=== PATIENT | female | born 1940 | race Caucasian/White ===

== ENCOUNTER → 2018-02-16 | Outpatient (CLI) | payer MEDICARE ==
--- NOTE | 2018-02-18 09:05 | MM ---
Reason for exam: screening (asymptomatic). Last mammogram was performed 1 year and 2 months ago. History: Patient is postmenopausal and had first child at age 29. Physical Findings: A clinical breast exam by your physician is recommended on an annual basis and results should be correlated with mammographic findings. MG Screening Mammo w CAD Bilateral CC and MLO view(s) were taken. Prior study comparison: December 30, 2016, mammogram, performed at [facility]. November 30, 2015, mammogram, performed at [facility]. There are scattered fibroglandular densities. Stable bilateral secretory calcifications. No significant changes when compared with prior studies. ASSESSMENT: Negative, BI-RAD 1 RECOMMENDATION: Routine screening mammogram of both breasts in 1 year.
== END | disposition home or self-care (01) ==
LOC: RADMAMWWP 13:19
PROVIDERS: ATTEND Family Medicine
DX: Z12.31 Encounter for screening mammogram for malignant neoplasm of breast (principal)
CPT/HCPCS: 77067

== ENCOUNTER → 2018-04-15 | Outpatient (CLI) | payer MEDICARE ==
--- NOTE | 2018-04-15 15:02 | CT ---
EXAMINATION TYPE: CT abdomen pelvis w con DATE OF EXAM: 04/15/2018 COMPARISON: NONE HISTORY: RLQ bulging CT DLP: 501.1 mGycm CONTRAST: CT scan of the abdomen and pelvis is performed without Oral Contrast and with IV Contrast, patient in jected with 100 mL of Isovue 300. FINDINGS: LUNG BASES-: No visible nodule. No infiltrate. LIVER/GB: No calcified gallstones. No space occupying hepatic lesion. Biliary tree is of normal ca liber. PANCREAS: No inflammation. No distinct mass. SPLEEN: No splenic enlargement. No lesion seen. ADRENALS: No nodule. No thickening. KIDNEYS/BLADDER: No hydronephrosis. No nephrolithiasis. No distinct renal mass. Urinary bladder g rossly unremarkable. BOWEL: Normal appendix. Normal bowel caliber. No inflammation. GENITAL ORGANS: Right ovarian cystic lesion measuring 3 cm. Uterus and left ovary are unremarkable. LYMPH NODES: No greater than 1cm abdominal or pelvic lymph nodes are appreciated. AORTA: No significant abnormality. OSSEOUS STRUCTURES: No significant abnormality is seen. OTHER: Fat-containing right inguinal hernia. IMPRESSION: 1. Right ovarian cystic lesion. Consider ultrasound correlation.
== END | disposition home or self-care (01) ==
LOC: RADCTMAIN 13:27
PROVIDERS: ATTEND Surgery
DX: N83.201 Unspecified ovarian cyst, right side (principal)
CPT/HCPCS: 82565; 84520; 74177; 36415; Q9967

== ENCOUNTER → 2019-01-12 | Outpatient (CLI) | payer MEDICARE ==
[2019-01-12 18:33] LABS: Basophils % (A) 0 %; Eosinophils # (A) 0.1 k/uL (0-0.7); Eosinophils % (A) 1 %; HCT 47.2 % (34.0-46.0); HGB 15.4 gm/dL (11.4-16.0); Lymphocytes # (A) 1.4 k/uL (1.0-4.8); Lymphocytes % (A) 17 %; MCH 30.7 pg (25.0-35.0); MCHC 32.7 g/dL (31.0-37.0); MCV 93.9 fL (80.0-100.0); Mean Platelet Volume 7.9; Monocytes # (A) 0.7 k/uL (0-1.0); Monocytes % (A) 8 %; Neutrophils # (A) 6.1 k/uL (1.3-7.7); Neutrophils % (A) 71 %; Platelet Count 278 k/uL (150-450); RBC 5.02 m/uL (3.80-5.40); RDW 13.1 % (11.5-15.5); WBC 8.6 k/uL (3.8-10.6)
[2019-01-12 18:42] LABS: Appearance,Urine Clear (Clear); Bacteria,Urine Rare /hpf; Bilirubin,Urine Negative (Negative); Blood,Urine Negative (Negative); Color,Urine Light Yellow; Glucose,Urine (UA) Negative (Negative); Ketones,Urine Negative (Negative); Leukocyte Esterase,Urine Small (Negative); Nitrite,Urine Negative (Negative); Protein,Urine Negative (Negative); RBC,Urine 1 /hpf (0-5); Specific Gravity,Urine 1.004 (1.001-1.035); Urobilinogen,Urine <2.0 mg/dL (<2.0); WBC,Urine 2 /hpf (0-5)
[2019-01-12 18:44] LABS: Amylase 197 U/L (30-110); Blood Urea Nitrogen 18 mg/dL (7-17); Lipase 1552 U/L (23-300)
--- NOTE | 2019-01-12 19:45 | CT ---
EXAMINATION TYPE: CT abdomen pelvis w con DATE OF EXAM: 01/12/2019 COMPARISON: 04/15/2018 HISTORY: right sided abdominal pain, diarrhea CT DLP: 868 mGycm Automated exposure control for dose reduction was used. TECHNIQUE: Helical acquisition of images was performed from the lung bases through the pelvis. CONTRAST: Performed with Oral Contrast and with IV Contrast, patient injected with 60cc mL of Isovue 300. FINDINGS: Lung bases are clear. There is no pleural effusion. Stomach appears normal. Liver shows no focal defe ct. Spleen appears normal. There is no evidence of pancreatic mass. Gallbladder appears normal. Bile ducts are not dilated. There is no adrenal mass. Kidneys of normal size. There is no hydronephrosis. Kidneys show satisfacto ry contrast opacification. There is no retroperitoneal adenopathy. Bladder distends smoothly. Uterus is anteverted. There is no evidence of a pelvic mass. There is left hip surgery noted. There is no intestinal wall thickening. T here is no mesenteric edema. There is left psoas muscle atrophy. I see no bony destructive process. T here is no evidence of free air. There is no ascites. No sign of renal stone or obstruction. No dilat ed ducts..Appendix is not seen. There is no sign of appendicitis. There is a 3 cm thin-walled cystic fluid collection in the high pelvis on the right side measuring 3 cm. IMPRESSION: 3 cm cystic mass in the pelvis on the right side unchanged compared to old exam and could be ovarian cyst. I do not see a cause for right side pain.
== END | disposition home or self-care (01) ==
LOC: RADCTMAIN 16:18
PROVIDERS: ATTEND Family Medicine
DX: R19.00 Intra-abdominal and pelvic swelling, mass and lump, unspecified site (principal); R10.31 Right lower quadrant pain
CPT/HCPCS: 82150; 82565; 83690; 84520; 85025; 81001; 87086; 74177; 36415; Q9967

== ENCOUNTER 2019-03-09 15:20 | Emergency (ER) | payer OTHER, MEDICARE ==
--- NOTE | 2019-03-09 16:39 | XR ---
EXAMINATION TYPE: XR knee complete LT DATE OF EXAM: 03/09/2019 COMPARISON: NONE HISTORY: Knee pain TECHNIQUE: 3 views FINDINGS: There is slight narrowing of the medial joint space. I see no fracture nor dislocation. The re is no sign of joint effusion. There is mild spurring on the patella. IMPRESSION: Mild degenerative changes. No fracture.
--- NOTE | 2019-03-09 16:41 | XR ---
EXAMINATION TYPE: XR foot complete RT DATE OF EXAM: 03/09/2019 COMPARISON: NONE HISTORY: Foot pain TECHNIQUE: 3 views FINDINGS: There is multiple hammertoe deformity. There is calcaneal spurring. I see no fracture nor d islocation. Metatarsals are intact. There is mild hallux valgus. IMPRESSION: No acute abnormality of the right foot.
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
--- NOTE | 2019-03-09 17:47 | XR ---
EXAMINATION TYPE: XR chest 2V DATE OF EXAM: 03/09/2019 COMPARISON: June 21, 2016 HISTORY: Fall. Pain. TECHNIQUE: Frontal and lateral views of the chest are obtained. FINDINGS: Heart and mediastinum are normal. Lungs are clear of infiltrate. Bony thorax is intact. Pu lmonary vascularity is normal. IMPRESSION: No active cardiopulmonary disease. No change.
[2019-03-09] MEDS ORDERED: SODIUM CHLORIDE 0.9% 500 ML 500 ML IV STA (18:45)
[2019-03-09 19:04] LABS: Basophils % (A) 0 %; Eosinophils # (A) 0.1 k/uL (0-0.7); Eosinophils % (A) 1 %; HCT 46.1 % (34.0-46.0); HGB 14.7 gm/dL (11.4-16.0); Lymphocytes # (A) 1.2 k/uL (1.0-4.8); Lymphocytes % (A) 10 %; MCH 29.4 pg (25.0-35.0); MCHC 31.9 g/dL (31.0-37.0); MCV 92.2 fL (80.0-100.0); Mean Platelet Volume 7.1; Monocytes # (A) 0.6 k/uL (0-1.0); Monocytes % (A) 5 %; Neutrophils # (A) 10.6 k/uL (1.3-7.7); Neutrophils % (A) 83 %; Platelet Count 262 k/uL (150-450); RDW 13.4 % (11.5-15.5); WBC 12.7 k/uL (3.8-10.6)
[2019-03-09 19:19] LABS: ALT 17 U/L (9-52); AST 26 U/L (14-36); Albumin 3.9 g/dL (3.5-5.0); Alkaline Phosphatase 77 U/L (38-126); Anion Gap 8 mmol/L; Blood Urea Nitrogen 23 mg/dL (7-17); Calcium 9.3 mg/dL (8.4-10.2); Carbon Dioxide 26 mmol/L (22-30); Chloride 105 mmol/L (98-107); Glucose 98 mg/dL (74-99); Potassium 4.1 mmol/L (3.5-5.1); Sodium 139 mmol/L (137-145); Total Bilirubin 0.5 mg/dL (0.2-1.3); Total Protein 6.8 g/dL (6.3-8.2)
[2019-03-09 19:24] LABS: INR 0.9 (<1.2); Prothrombin Time 10.1 sec (9.0-12.0)
[2019-03-09 19:38] LABS: Partial Thromboplastin Time 17.8 sec (22.0-30.0)
[2019-03-09] MEDS ORDERED: ALPRAZolam 0.25 MG TAB PO STA (19:47)
[2019-03-09] MEDS ORDERED: cloNIDine HCL 0.1 MG TAB PO STA (19:48)
[2019-03-09 20:18] LABS: Appearance,Urine Clear (Clear); Bilirubin,Urine Negative (Negative); Blood,Urine Negative (Negative); Color,Urine Colorless; Glucose,Urine (UA) Negative (Negative); Ketones,Urine Trace (Negative); Leukocyte Esterase,Urine Negative (Negative); Nitrite,Urine Negative (Negative); Protein,Urine Negative (Negative); Specific Gravity,Urine 1.005 (1.001-1.035); Urobilinogen,Urine <2.0 mg/dL (<2.0)
[2019-03-09 20:37] VITALS: RESP 18
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
[2019-03-09 21:10] VITALS: BP 182/99; PULSE 103; TEMP 98.5
== END 2019-03-09 21:20 | disposition home or self-care (01) ==
LOC: EC 15:20
DX: S00.11XA Contusion of right eyelid and periocular area, initial encounter (principal); S80.02XA Contusion of left knee, initial encounter; S90.811A Abrasion, right foot, initial encounter; J44.9 Chronic obstructive pulmonary disease, unspecified; E78.5 Hyperlipidemia, unspecified; I10 Essential (primary) hypertension; F32.9 Major depressive disorder, single episode, unspecified; F41.9 Anxiety disorder, unspecified; Z79.51 Long term (current) use of inhaled steroids; Z79.899 Other long term (current) drug therapy; Z88.8 Allergy status to other drugs, medicaments and biological substances; V43.52XA Car driver injured in collision with other type car in traffic accident, initial encounter; Y92.410 Unspecified street and highway as the place of occurrence of the external cause
CPT/HCPCS: 36415; 86900; 86901; 80053; 84484; 85025; 85610; 85730; 86850; 81003; 73562; 73630; 71046; 72125; 70486; 70450; 71260; 74177; 99285; Q9967

== ENCOUNTER → 2019-03-19 | Outpatient (CLI) | payer MEDICARE ==
--- NOTE | 2019-03-23 09:42 | MM ---
Reason for exam: screening (asymptomatic). Last mammogram was performed 1 year and 1 month ago. History: Patient is postmenopausal and had first child at age 29. Physical Findings: A clinical breast exam by your physician is recommended on an annual basis and results should be correlated with mammographic findings. MG 3D Screening Mammo W/Cad Bilateral CC and MLO view(s) were taken. Prior study comparison: February 16, 2018, bilateral MG screening mammo w CAD. December 30, 2016, mammogram, performed at [facility]. The breast tissue is heterogeneously dense. This may lower the sensitivity of mammography. No significant changes when compared with prior studies. ASSESSMENT: Benign, BI-RAD 2 RECOMMENDATION: Routine screening mammogram of both breasts in 1 year.
== END | disposition home or self-care (01) ==
LOC: RADMAMWWP 11:07
PROVIDERS: ATTEND Family Medicine
DX: Z12.31 Encounter for screening mammogram for malignant neoplasm of breast (principal)
CPT/HCPCS: 77063; 77067

== ENCOUNTER → 2020-05-26 | Outpatient (CLI) | payer MEDICARE ==
--- NOTE | 2020-05-29 14:16 | MM ---
Reason for exam: screening (asymptomatic). Last mammogram was performed 1 year and 2 months ago. History: Patient is postmenopausal and had first child at age 29. Family history of breast cancer in sister. Physical Findings: A clinical breast exam by your physician is recommended on an annual basis and results should be correlated with mammographic findings. MG 3D Screening Mammo W/Cad Bilateral CC and MLO view(s) were taken. Prior study comparison: March 19, 2019, bilateral MG 3d screening mammo w/cad. February 16, 2018, bilateral MG screening mammo w CAD. The breast tissue is heterogeneously dense. This may lower the sensitivity of mammography. Finding: There are typically benign dystrophic, round, linear calcifications in both breasts. There is no discrete abnormality. ASSESSMENT: Benign, BI-RAD 2 RECOMMENDATION: Routine screening mammogram of both breasts in 1 year.
== END | disposition home or self-care (01) ==
LOC: RADMAMWWP 12:57
PROVIDERS: ATTEND Family Medicine
DX: Z12.31 Encounter for screening mammogram for malignant neoplasm of breast (principal)
CPT/HCPCS: 77063; 77067

== ENCOUNTER → 2021-07-03 | Outpatient (CLI) | payer MEDICARE ==
--- NOTE | 2021-07-05 13:58 | MM ---
Reason for exam: screening (asymptomatic). Last mammogram was performed 1 year and 1 month ago. History: Patient is postmenopausal and had first child at age 29. Family history of breast cancer in sister. Physical Findings: A clinical breast exam by your physician is recommended on an annual basis and results should be correlated with mammographic findings. MG 3D Screening Mammo W/Cad Bilateral CC and MLO view(s) were taken. Prior study comparison: May 26, 2020, bilateral MG 3d screening mammo w/cad. March 19, 2019, bilateral MG 3d screening mammo w/cad. There are scattered fibroglandular densities. Finding: There are typically benign linear, diffuse/scattered calcifications in both breasts. No significant changes in finding since May 26, 2020 and March 19, 2019. ASSESSMENT: Benign, BI-RAD 2 RECOMMENDATION: Routine screening mammogram of both breasts in 1 year.
== END | disposition home or self-care (01) ==
LOC: RADMAMWWP 13:15
PROVIDERS: ATTEND Family Medicine
DX: Z12.31 Encounter for screening mammogram for malignant neoplasm of breast (principal); Z80.3 Family history of malignant neoplasm of breast; Z78.0 Asymptomatic menopausal state
CPT/HCPCS: 77063; 77067

== ENCOUNTER → 2022-07-11 | Outpatient (CLI) | payer MEDICARE ==
--- NOTE | 2022-07-12 07:45 | MM ---
Reason for Exam: Screening (asymptomatic). Last screening mammogram was performed 12 month(s) ago. Patient History: Menarche at age 10. First Full-Term at age 29. Late child-bearing (after 30). Postmenopausal. Sister had breast cancer, age 60. Risk Values: [place] 5 year model risk: 3.0%. NCI Lifetime model risk: 3.7%. Prior Study Comparison: 03/19/2019 Bilateral Screening Mammogram, [facility]. 05/26/2020 Bilateral Screening Mammogram, [facility]. 07/03/2021 Bilateral Screening Mammogram, [facility]. Tissue Density: The breast tissue is heterogeneously dense. This may lower the sensitivity of mammography. Findings: Analyzed By CAD. There is no suspicious group of microcalcifications. U asymmetric density upper right MLO view 7.5 cm from the nipple. Additional views are recommended. Overall Assessment: Incomplete: need additional imaging evaluation, BI-RAD 0 Management: Diagnostic Mammogram of the right breast. A clinical breast exam by your physician is recommended on an annual basis and results should be correlated with mammographic findings. Electronically signed and approved by: Tay Torres M.D. Radiologis
== END | disposition home or self-care (01) ==
LOC: RADMAMWWP 13:24
PROVIDERS: ATTEND Family Medicine
DX: Z12.31 Encounter for screening mammogram for malignant neoplasm of breast (principal)
CPT/HCPCS: 77063; 77067

== ENCOUNTER → 2022-07-16 | Outpatient (CLI) | payer MEDICARE ==
--- NOTE | 2022-07-16 14:41 | MM ---
Reason for Exam: Additional evaluation requested from abnormal screening. Last screening mammogram was performed less than 1 month ago. Patient History: Menarche at age 10. First Full-Term at age 29. Late child-bearing (after 30). Postmenopausal. Sister had breast cancer, age 60. Risk Values: Park 5 year model risk: 3.0%. NCI Lifetime model risk: 3.7%. Prior Study Comparison: 11/30/2015 Screening Mammogram, [facility]. 12/30/2016 Screening Mammogram, [facility]. 02/16/2018 Bilateral Screening Mammogram, [facility] 03/19/2019 Bilateral Screening Mammogram, [facility]. 05/26/2020 Bilateral Screening Mammogram, [facility] 07/03/2021 Bilateral Screening Mammogram, [facility]. 07/11/2022 Bilateral MG 3D screening mammo w/cad, [facility]. Tissue Density: Right: The breast tissue is heterogeneously dense. This may lower the sensitivity of mammography. Findings: Analyzed By CAD. No evidence for mass or distortion. Overall Assessment: Negative, BI-RAD 1 Management: Screening Mammogram of both breasts in 1 year. A clinical breast exam by your physician is recommended on an annual basis and results should be correlated with mammographic findings. This exam should not preclude additional follow-up of suspicious palpable abnormalities. Results were given to the patient verbally at the time of exam. Electronically signed and approved by: Tay Torres M.D. Radiologis
== END | disposition home or self-care (01) ==
LOC: RADMAMWWP 13:29
PROVIDERS: ATTEND Family Medicine
DX: R92.8 Other abnormal and inconclusive findings on diagnostic imaging of breast (principal); Z78.0 Asymptomatic menopausal state; Z80.3 Family history of malignant neoplasm of breast
CPT/HCPCS: 77065; G0279; 77061

== ENCOUNTER 2023-01-03 13:54 | Inpatient (IN) | payer MEDICARE ==
[2023-01-03] MEDS ORDERED: SODIUM CHLORIDE 0.9% 500 ML 500 ML IV STA (13:59)
--- NOTE | 2023-01-03 14:03 | ED ---
General Adult HPI - General Stated complaint: poss stroke Time Seen by Provider: 01/03/23 13:58 Source: patient, EMS, RN notes reviewed, old records reviewed - History of Present Illness Initial comments: 82-year-old female history of hypertension presenting for evaluation of work finding difficulty and some slurred speech. The symptoms are intermittent. She was normal at 10 AM which she took a nap. She woke up from her nap at approximately 11 AM and was noted to have some word finding difficulty. She is able to speak in full sentences but then occasionally stares off and appears to have a hard time finding the word that she is looking for. This is not constant but has been witnessed but by paramedics and a single episode by myself. She denies focal limb weakness. She denies headache. Denies chest pain. No prior history of CVA. No anticoagulation. - Related Data Home Medications Medication Instructions Recorded Confirmed lisinopriL [Prinivil] 20 mg PO DAILY 08/22/16 01/03/23 Albuterol Inhaler [Ventolin Hfa 2 puff INHALATION RT-QID PRN 01/03/23 01/03/23 Inhaler] Beclomethasone Dip 80 Mcg/Puff 2 puff INHALATION RT-BID 01/03/23 01/03/23 [Qvar 80 mcg] Calcium Carbonate [Calcium] 600 mg PO DAILY 01/03/23 01/03/23 Lovastatin [Mevacor] 80 mg PO HS 01/03/23 01/03/23 Allergies Allergy/AdvReac Type Severity Reaction Status Date / Time citalopram hydrobromide AdvReac "It Verified 01/03/23 14:39 [From Celexa] drugged me too much" Review of Systems ROS Statement: Those systems with pertinent positive or pertinent negative responses have been documented in the HPI. ROS Other: All systems not noted in ROS Statement are negative. Past Medical History Past Medical History: Asthma, COPD, Hyperlipidemia, Hypertension Additional Past Medical History / Comment(s): pain-shingles abdomen rt side and back, inner ear issue with occasional dizziness History of Any Multi-Drug Resistant Organisms: None Reported Past Surgical History: Orthopedic Surgery Additional Past Surgical History / Comment(s): scar tissue removal from neck. d&c , left hip surgery Past Anesthesia/Blood Transfusion Reactions: No Reported Reaction Past Psychological History: Anxiety, Depression Past Alcohol Use History: None Reported Past Drug Use History: None Reported - Past Family History Mother Family Medical History: CVA/TIA Father Family Medical History: Myocardial Infarction (IN) General Exam General appearance: alert, in no apparent distress Head exam: Present: atraumatic, normocephalic Eye exam: Present: normal appearance, PERRL ENT exam: Present: normal exam Neck exam: Present: normal inspection. Absent: tenderness, meningismus Respiratory exam: Present: normal lung sounds bilaterally. Absent: respiratory distress, wheezes Cardiovascular Exam: Present: regular rate, normal rhythm GI/Abdominal exam: Present: soft. Absent: distended, tenderness, guarding Extremities exam: Present: normal inspection, normal capillary refill. Absent: pedal edema Neurological exam: Present: alert, oriented X3, CN II-XII intact, motor sensory deficit (NIH of 1 for expressive aphasia) Psychiatric exam: Present: normal affect, normal mood Skin exam: Present: warm, dry, intact. Absent: cyanosis, diaphoretic Course Vital Signs 01/03/23 01/03/23 01/03/23 13:55 14:00 14:15 Temperature 97.9 F 97.8 F 97.8 F Pulse Rate 120 H 120 H 116 H Pulse Rate [ 120 H Principal Archaeologist ] Respiratory 20 18 20 Rate Blood Pressure 193/103 190/96 187/100 O2 Sat by Pulse 96 96 97 Oximetry 01/03/23 14:45 Temperature 98.0 F Pulse Rate 116 H Pulse Rate [ Principal Archaeologist ] Respiratory 20 Rate Blood Pressure 206/137 O2 Sat by Pulse 96 Oximetry EKG Findings - EKG Comments: EKG Findings:: EKG: Sinus rhythm rate of 93, WA interval 203, QRS duration 73, QTC 377, no ST segment elevation. Medical Decision Making - Medical Decision Making Was pt. sent in by a medical professional or institution (, PA, SPACE BUYER, urgent care, hospital, or custodial...) When possible be specific @ -No Did you speak to anyone other than the patient for history (EMS, parent, family, police, friend...)? What history was obtained from this source @ -History obtained from paramedics and patient's as well as the patient Did you review nursing and triage notes (agree or disagree)? Why? @ -I reviewed and agree with nursing and triage notes Were old charts reviewed (outside hosp., previous admission, EMS record, old EKG, old radiological studies, urgent care reports/EKG's, custodial records)? Report findings @ -No old charts were reviewed Differential Diagnosis (chest pain, altered mental status, abdominal pain women, abdominal pain men, vaginal bleeding, weakness, fever, dyspnea, syncope, headache, dizziness, GI bleed, back pain, seizure, CVA, palpatations, mental health, musculoskeletal)? @ -Differential CVA Ischemic stroke, hemorrhagic stroke, brain tumor, atypical migraine, Wernicke's encephalopathy, seizure, multiple sclerosis, meningitis, encephalitis, hypoglycemia, Guillain-Fields, electrolytes disturbance, myasthenia gravis.... This is not meant to be an all-inclusive list EKG interpreted by me (3pts min.). @ -As above X-rays interpreted by me (1pt min.). @ -Chest x-ray reviewed, agree with the radiologist assessment, no acute findings CT interpreted by me (1pt min.). @ -CT without contrast reviewed, negative for intracranial hemorrhage, no acute findings. Agree with the radiologist assessment U/S interpreted by me (1pt. min.). @ -None done What testing was considered but not performed or refused? (CT, X-rays, U/S, labs)? Why? @ -None What meds were considered but not given or refused? Why? @ -Considered TPA at the time of onset however given the improving symptoms and duration of 4 hours felt that the risks outweigh the benefits. Did you discuss the management of the patient with other professionals (professionals i.e. , PA, SPACE BUYER, lab, RT, psych nurse, social science instructor, track coach, teacher, trust officer, outpatient case manager)? Give summary @ -Discussed this patient's care with the stroke intervention was Dr. Maria at the time of presentation and with the admitting physician Dr. Brown Was smoking cessation discussed for >3mins.? @ -No Was critical care preformed (if so, how long)? @ -35 min Were there social determinants of health that impacted care today? How? (Homelessness, low income, unemployed, alcoholism, drug addiction, tra nsportation, low edu. Level, literacy, decrease access to med. care, longterm, rehab)? @ -No Was there de-escalation of care discussed even if they declined (Discuss DNR or withdrawal of care, Hospice)? DNR status @ -No What co-morbidities impacted this encounter? (DM, HTN, Smoking, COPD, CAD, Cancer, CVA, ARF, Chemo, Hep., AIDS, mental health diagnosis, sleep apnea, morbid obesity)? @ -None Was patient admitted / discharged? Hospital course, mention meds given and route, prescriptions, significant lab abnormalities, going to OR and other pertinent info. @ -82-year-old female who percent with expressive aphasia and word finding difficulty. Initial NIH was 1 or 2. There was no limb weakness. No ataxia. Patient's symptoms improved in the emergency department. CT and CT angiography were performed which were negative for acute findings. The patient was given aspirin, she was admitted with MRI pending. Undiagnosed new problem with uncertain prognosis? @ -Episode of expressive aphasia improving Drug Therapy requiring intensive monitoring for toxicity (Heparin, Nitro, Insulin, Cardizem)? @ -No Were any procedures done? @ -No Diagnosis/symptom? @ -CVA Acute, or Chronic, or Acute on Chronic? @ -Acute Uncomplicated (without systemic symptoms) or Complicated (systemic symptoms)? @ -complicated Side effects of treatment? @ -No Exacerbation, Progression, or Severe Exacerbation? @ -No Poses a threat to life or bodily function? How? (Chest pain, USA, [place], pneumonia, PE, COPD, DKA, ARF, appy, cholecystitis, CVA, Diverticulitis, Homicidal, Suicidal, threat to staff... and all critical care pts) @ -[CVA, risk of progressive neurologic deficit. - Lab Data Result diagrams: 01/03/23 14:05 01/03/23 14:05 Lab Results 01/03/23 01/03/23 01/03/23 Range/Units 14:05 14:05 14:05 WBC 8.5 (3.8-10.6) k/uL RBC 4.90 (3.80-5.40) m/uL Hgb 15.2 (11.4-16.0) gm/dL Hct 46.1 H (34.0-46.0) % MCV 94.1 (80.0-100.0) fL MCH 30.9 (25.0-35.0) pg MCHC 32.9 (31.0-37.0) g/dL RDW 12.7 (11.5-15.5) % Plt Count 267 (150-450) k/uL MPV 7.5 Neutrophils % 74 % Lymphocytes % 12 % Monocytes % 10 % Eosinophils % 1 % Basophils % 0 % Neutrophils # 6.3 (1.3-7.7) k/uL Lymphocytes # 1.1 (1.0-4.8) k/uL Monocytes # 0.8 (0-1.0) k/uL Eosinophils # 0.0 (0-0.7) k/uL Basophils # 0.0 (0-0.2) k/uL PT 10.3 (9.0-12.0) sec INR 1.0 (<1.2) APTT 22.1 (22.0-30.0) sec Sodium 137 (137-145) mmol/L Potassium 3.7 (3.5-5.1) mmol/L Chloride 97 L (98-107) mmol/L Carbon Dioxide 32 H (22-30) mmol/L Anion Gap 8 mmol/L BUN 20 H (7-17) mg/dL Creatinine 0.67 (0.52-1.04) mg/dL Est GFR (CKD-EPI)AfAm >90 (>60 ml/min/1.73 sqM) Est GFR (CKD-EPI)NonAf 81 (>60 ml/min/1.73 sqM) Glucose 117 H (74-99) mg/dL POC Glucose (mg/dL) (70-110) mg/dL POC Glu Change Control Manager ID Calcium 9.0 (8.4-10.2) mg/dL Total Bilirubin 0.5 (0.2-1.3) mg/dL AST 33 (14-36) U/L ALT 21 (4-34) U/L Alkaline Phosphatase 94 (38-126) U/L Creatine Kinase (30-135) U/L Troponin I (0.000-0.034) ng/mL Total Protein 7.4 (6.3-8.2) g/dL Albumin 4.1 (3.5-5.0) g/dL 01/03/23 01/03/23 01/03/23 Range/Units 14:05 14:05 14:05 WBC (3.8-10.6) k/uL RBC (3.80-5.40) m/uL Hgb (11.4-16.0) gm/dL Hct (34.0-46.0) % MCV (80.0-100.0) fL MCH (25.0-35.0) pg MCHC (31.0-37.0) g/dL RDW (11.5-15.5) % Plt Count (150-450) k/uL MPV Neutrophils % % Lymphocytes % % Monocytes % % Eosinophils % % Basophils % % Neutrophils # (1.3-7.7) k/uL Lymphocytes # (1.0-4.8) k/uL Monocytes # (0-1.0) k/uL Eosinophils # (0-0.7) k/uL Basophils # (0-0.2) k/uL PT (9.0-12.0) sec INR (<1.2) APTT (22.0-30.0) sec Sodium (137-145) mmol/L Potassium (3.5-5.1) mmol/L Chloride (98-107) mmol/L Carbon Dioxide (22-30) mmol/L Anion Gap mmol/L BUN (7-17) mg/dL Creatinine (0.52-1.04) mg/dL Est GFR (CKD-EPI)AfAm (>60 ml/min/1.73 sqM) Est GFR (CKD-EPI)NonAf (>60 ml/min/1.73 sqM) Glucose (74-99) mg/dL POC Glucose (mg/dL) 126 H (70-110) mg/dL POC Glu Change Control Manager ID [place] Joshua Calcium (8.4-10.2) mg/dL Total Bilirubin (0.2-1.3) mg/dL AST (14-36) U/L ALT (4-34) U/L Alkaline Phosphatase (38-126) U/L Creatine Kinase 80 (30-135) U/L Troponin I <0.012 (0.000-0.034) ng/mL Total Protein (6.3-8.2) g/dL Albumin (3.5-5.0) g/dL Critical Care Time Critical Care Time: Yes Total Critical Care Time: 35 Disposition Clinical Impression: Cerebrovascular accident (CVA) Disposition: ADMITTED IP TO THIS HOSP Condition: Stable Is patient prescribed a controlled substance at d/c from ED?: No Referrals: Jean Claude Chaidez DO [Primary Care Provider] - 1-2 days Time of Disposition: 16:27
[2023-01-03 14:08] LABS: Glucose,Whole Blood 126 mg/dL (70-110)
[2023-01-03] MEDS ORDERED: methylPREDNISolone SOD SUCCI 125 MG/2 ML VIAL IV STA (14:14)
[2023-01-03] MEDS ORDERED: FAMOTIDINE 20 MG/2 ML VIAL IV STA (14:14)
[2023-01-03] MEDS ORDERED: ONDANSETRON 4 MG/2 ML VIAL IVP STA (14:17)
[2023-01-03 14:26] LABS: Basophils % (A) 0 %; Eosinophils % (A) 1 %; HCT 46.1 % (34.0-46.0); HGB 15.2 gm/dL (11.4-16.0); Lymphocytes # (A) 1.1 k/uL (1.0-4.8); Lymphocytes % (A) 12 %; MCH 30.9 pg (25.0-35.0); MCHC 32.9 g/dL (31.0-37.0); MCV 94.1 fL (80.0-100.0); Mean Platelet Volume 7.5; Monocytes # (A) 0.8 k/uL (0-1.0); Monocytes % (A) 10 %; Neutrophils # (A) 6.3 k/uL (1.3-7.7); Neutrophils % (A) 74 %; Platelet Count 267 k/uL (150-450); RDW 12.7 % (11.5-15.5); WBC 8.5 k/uL (3.8-10.6)
--- NOTE | 2023-01-03 14:40 | CT ---
EXAMINATION TYPE: CT brain wo con CT DLP: 1096.5 mGycm, Automated exposure control for dose reduction was used. DATE OF EXAM: 01/03/2023 2:34 PM COMPARISON: CT brain C-spine 03/09/2019. CLINICAL INDICATION:Female, 82 years old with history of Neuro deficit, acute, stroke suspected, CODE STROKE TECHNIQUE: Brain: Multiple axial CT images of the brain were obtained without IV contrast. Coronal and sagittal images are reviewed. FINDINGS: Brain: Extra-axial spaces: No abnormal extra-axial fluid collections. Ventricular system: Within normal limits Cerebral parenchyma: Cerebral atrophy. No acute intraparenchymal hemorrhage or mass effect. The valle -white junction is well differentiated. Scattered hypoattenuating areas are seen within the white mat ter. Cerebellum: Unremarkable. Mass effect: No evidence of midline shift. Intracranial vasculature: Atherosclerotic calcifications of the intracranial vessels. Soft tissues: Normal. Calvarium/osseous structures: No depressed skull fracture. Paranasal sinuses and mastoid air cells: Clear Visualized orbits: Bilateral aphakia IMPRESSION: 1. No acute intracranial process. 2. Nonspecific white matter changes, likely secondary to chronic small vessel ischemic disease.
--- NOTE | 2023-01-03 14:48 | CT ---
EXAMINATION TYPE: CT angio head neck CT DLP: 358 mGycm, Automated exposure control for dose reduction was used. DATE OF EXAM: 01/03/2023 2:38 PM COMPARISON: CT head 01/03/2023. CLINICAL INDICATION:Female, 82 years old with history of Neuro deficit, acute, stroke suspected; PHH, CODE STROKE TECHNIQUE: Axially acquired helical CT angiogram of the head and neck was obtained with contrast util izing 65 cc of Isovue-370 administered intravenously. Axial images are supplemented with 3D reconstru ctions which were post-processed at an independent workstation. NASCET criteria used. FINDINGS: Motion degraded examination. CTA HEAD: No evidence of acute intracranial hemorrhage, mass effect, or midline shift. The ventricles, sulci, a nd cisterns are unremarkable. The visualized portions of the internal carotid arteries, middle cerebral arteries, anterior cerebral arteries, and posterior cerebral arteries are patent. The basilar and vertebral arteries are patent. CTA NECK: Right Carotid System: The common carotid artery and external carotid artery are patent. Minimal atherosclerotic calcificati on at the carotid bulb. The carotid bifurcation demonstrates no evidence of hemodynamically significa nt stenosis. The remaining portions of the internal carotid artery demonstrate normal size without si gnificant narrowing. Left Carotid System: The common carotid artery and external carotid artery are patent. The carotid bifurcation demonstrate s no evidence of hemodynamically significant stenosis. The remaining portions of the internal carotid artery demonstrate normal size without significant narrowing. Vertebral arteries are patent without evidence hemodynamically significant stenosis. There is a three-vessel aortic arch. The origins of the great vessels are patent. No evidence of hemo dynamically significant stenosis. IMPRESSION: Motion degraded examination. 1. No evidence of dissection of the cervical internal carotid arteries or vertebral arteries or any e vidence of significant stenosis at the carotid bifurcations. 2. No evidence of high-grade stenosis or intracranial aneurysm.
[2023-01-03] MEDS ORDERED: ASPIRIN 325 MG TAB PO STA (14:53)
[2023-01-03] MEDS ORDERED: SODIUM CHLORIDE 0.9% 500 ML 500 ML IV ONE (14:53)
[2023-01-03 14:57] LABS: AST 33 U/L (14-36); African American GFR (CKD) >90 (>60 ml/min/1.73 sqM); Albumin 4.1 g/dL (3.5-5.0); Blood Urea Nitrogen 20 mg/dL (7-17); Carbon Dioxide 32 mmol/L (22-30); Chloride 97 mmol/L (98-107); Glucose 117 mg/dL (74-99); Non-African American GFR(CKD) 81 (>60 ml/min/1.73 sqM); Total Bilirubin 0.5 mg/dL (0.2-1.3); Total Protein 7.4 g/dL (6.3-8.2)
[2023-01-03 14:58] LABS: ALT 21 U/L (4-34); Alkaline Phosphatase 94 U/L (38-126); Anion Gap 8 mmol/L; Potassium 3.7 mmol/L (3.5-5.1); Sodium 137 mmol/L (137-145)
[2023-01-03 15:01] LABS: Partial Thromboplastin Time 22.1 sec (22.0-30.0); Prothrombin Time 10.3 sec (9.0-12.0)
--- NOTE | 2023-01-03 15:26 | XR ---
EXAMINATION TYPE: XR chest 1V portable DATE OF EXAM: 01/03/2023 3:20 PM COMPARISON: Chest radiographs from 03/09/2019 TECHNIQUE: XR chest 1V portable Portable AP radiograph of the chest. CLINICAL INDICATION:Female, 82 years old with history of altered mental status; FINDINGS: Lungs/Pleura: There is no evidence of pleural effusion, focal consolidation, or pneumothorax. Pulmonary vascularity: Unremarkable. Heart/mediastinum: Cardiomediastinal silhouette is unremarkable. Atherosclerotic calcifications are seen in the aorta. Musculoskeletal: No acute osseous pathology. IMPRESSION: No acute cardiopulmonary disease/process. No significant change from prior examination.
[2023-01-03] MEDS: SODIUM CHLORIDE 0.9% 1,000 ML IV SCH (18:03)
[2023-01-03] MEDS ORDERED: ALBUTEROL HFA INHALER INHALATION PRN (21:24)
[2023-01-03] MEDS: HEPARIN SODIUM,PORCINE/PF 5,000 UNIT/0.5 ML SYRINGE SQ SCH (23:35)
[2023-01-04] MEDS: SODIUM CHLORIDE 0.9% 1,000 ML IV SCH ×3 (04:07→23:34)
[2023-01-04] MEDS: FLUTICASONE 110 MCG INHALER INHALATION SCH ×2 (07:50→18:14)
[2023-01-04] MEDS: CALCIUM CARBONATE 500 MG CHEWABLE PO SCH (08:59)
[2023-01-04] MEDS: HEPARIN SODIUM,PORCINE/PF 5,000 UNIT/0.5 ML SYRINGE SQ SCH ×3 (08:59→23:34)
[2023-01-04] MEDS ORDERED: lisinopriL 20 MG TAB PO SCH (09:00)
[2023-01-04] MEDS ORDERED: ASPIRIN 325 MG TAB PO SCH (09:00)
[2023-01-04] MEDS ORDERED: ATORVASTATIN 40 MG TAB PO SCH (09:00)
[2023-01-04 09:52] LABS: Chol/HDL Ratio 2.52 Ratio; LDL Cholesterol,Calculated 88.6 mg/dL (0.0-131.0); VLDL Calculation 18.76 mg/dL (5.00-40.00)
--- NOTE | 2023-01-04 11:09 | P.CNNES ---
History of Present Illness Consult date: 01/04/23 Requesting physician: Benedicto Lundberg Reason for Consult: CVA History of Present Illness: This is a 82-year-old woman with medical history of hypertension, hyperlipidemia who presented to the emergency department because of the word finding difficulty. She stated that around the 10:00 yesterday a.m. she took a nap then when she woke up after half-hour which was 10:30 AM she was having difficulty getting her words out but knew what she wanted to say. She stated the episode lasted for couple hours. She denies of any numbness, weakness, visual disturbance or difficulty swallowing. She denies of any headache. Denies of any history of stroke or TIA. Denies history of atrial fibrillation. She denies being on antiplatelets or anticoagulation. Currently she feels she is at baseline. Some of the work-up during this hospital visit consisted of: On presentation her blood pressure was 193/103, heart rate 120. It was high 206/137 Lipid panel: TG 93, cholestrol 178, LDL [address] of the head is reported as no acute intracranial processes. Nonspecific white matter changes likely secondary due to chronic small vessel ischemic disease. I personally reviewed the CT of the head and I agree with report. CT angiography of the head and neck was reported as no evidence of dissection of the cervical internal carotid arteries or vertebral artery or any evidence of significant stenosis at the carotid bifurcation. No evidence of high-grade stenosis or intracranial aneurysm. ED team at [facility] stroke scale was a 1 or 2 with expressive aphasia/word finding difficulty. Per the ED have no IV TPA because of improving symptoms and duration of 4 hours and felt the risk outweighed the benefit. The ED team spoke with the stroke attending Dr. Maria. Review of Systems Review of system: The 12 point system was reviewed and apparent positive and negative per HPI. Past Medical History Past Medical History: Asthma, COPD, Hyperlipidemia, Hypertension Additional Past Medical History / Comment(s): pain-shingles abdomen rt side and back, inner ear issue with occasional dizziness History of Any Multi-Drug Resistant Organisms: None Reported Past Surgical History: Orthopedic Surgery Additional Past Surgical History / Comment(s): scar tissue removal from neck. d&c , left hip surgery Past Anesthesia/Blood Transfusion Reactions: No Reported Reaction Past Psychological History: Anxiety, Depression Smoking Status: Never smoker Past Alcohol Use History: None Reported Past Drug Use History: None Reported - Past Family History Mother Family Medical History: CVA/TIA Father Family Medical History: Myocardial Infarction (ID) Medications and Allergies Home Medications Medication Instructions Recorded Confirmed Type lisinopriL [Prinivil] 20 mg PO DAILY 08/22/16 01/03/23 History Albuterol Inhaler [Ventolin Hfa 2 puff INHALATION RT-QID PRN 01/03/23 01/03/23 History Inhaler] Beclomethasone Dip 80 Mcg/Puff 2 puff INHALATION RT-BID 01/03/23 01/03/23 Hi story [Qvar 80 mcg] Calcium Carbonate [Calcium] 600 mg PO DAILY 01/03/23 01/03/23 History Lovastatin [Mevacor] 80 mg PO HS 01/03/23 01/03/23 History Allergies Allergy/AdvReac Type Severity Reaction Status Date / Time citalopram hydrobromide AdvReac "It Verified 01/03/23 14:39 [From Celexa] drugged me too much" Physical Examination - Vital Signs Vital Signs: Vital Signs Temp Pulse Pulse Resp BP BP Pulse Ox 01/04/23 08:00 87 16 186/94 95 01/04/23 07:50 96 01/04/23 04:00 98 F 89 16 160/84 96 01/03/23 23:37 98 F 98 15 166/87 93 L 01/03/23 20:00 98.3 F 91 16 146/79 93 L 01/03/23 18:36 97.7 F 105 H 20 186/83 93 L 01/03/23 18:00 98.0 F 92 20 175/80 97 01/03/23 17:00 97.4 F L 92 18 176/68 97 01/03/23 16:00 97.6 F 90 18 172/68 97 01/03/23 15:00 97.6 F 98 18 177/82 97 01/03/23 14:45 98.0 F 116 H 20 206/137 96 01/03/23 14:15 97.8 F 116 H 20 187/100 97 01/03/23 14:00 97.8 F 120 H 18 190/96 96 01/03/23 13:55 97.9 F 120 H 120 H 20 193/103 96 Intake and Output 03/01/04/23 01/04/23 22:59 06:59 14:59 Intake Total 1140 118 Output Total 500 Balance 640 118 Intake: Intake, IV Titration 600 Amount Sodium Chloride 0.9% 1, 600 000 ml @ 100 mls/hr IV . Q10H [facility] Rx#:[id number] Oral 540 118 Output: Urine 500 Other: Voiding Method External Catheter External Catheter Weight 61.779 kg GENERAL: The patient is lying in bed and is not in acute distress. CHEST: The heart rate is regular rate rhythm. No murmurs to auscultation. . LUNG: Clear to auscultation bilaterally no wheezing noted throughout. Not labored breathing. ABDOMEN/GI: Bowel sounds present in all 4 quadrants. No tenderness to palpation throughout. NEUROLOGICAL: Higher mental function: The patient is awake, alert, oriented to self, place and time. Patient is following commands. No aphasia and no neglect. Cranial nerves: The pupils are round, equal and reactive to light and accommodation. Visual marrufo are full to confrontation throughout. Extraocular movement is intact no nystagmus is noted. Facial sensation is normal to touch throughout. The facial strength is normal throughout. Hearing is normal bilaterally to hand rub. Tongue is midline and moved [id number] without any difficulty. No dysarthria is noted. Shoulder shrug is normal bilaterally. Motor: The strength is 5 over 5 throughout. Normal tone and bulk. Cerebellum: Normal finger to nose bilaterally. Sensation: Sensation is normal to touch throughout. Reflexes (right/left): 2+ throughout. Plantars are mute bilaterally. Results - Laboratory Findings CBC and BMP: 01/03/23 14:05 01/03/23 14:05 Abnormal Lab Findings: Abnormal Labs 01/03/23 01/03/23 01/03/23 14:05 14:05 14:05 Hct 46.1 H Chloride 97 L Carbon Dioxide 32 H BUN 20 H Glucose 117 H POC Glucose (mg/dL) 126 H HDL Cholesterol 01/03/23 14:15 Hct Chloride Carbon Dioxide BUN Glucose POC Glucose (mg/dL) HDL Cholesterol 70.60 H Assessment and Plan Assessment: Transient ischemic attack (expressive aphasia) Accelerated hypertension (was as high as 206/137) History of hypertension Hyperlipidemia Plan: In the ED the patient was given aspirin 325 once then was started on aspirin 325 daily (was not on antiplatelets prior). I decreased the aspirin to 81 mg daily and I added Plavix 75 mg daily. She is on Lipitor 20 mg daily at bedtime for second seizure prophylaxis MRI of the brain, 2-D echo is ordered by the ED team is pending Continue neuro checks Cardiac monitoring PT OT and FIELD CROP FARMER are consulted We'll defer the rest of the medical management to primary team For DVT prophylaxis the patient is on subcu heparin 5000 units every hours Upon discharge recommend the patient to follow-up with a neurologist in outpatient within 1-2 weeks. Thank you for the consultation Time with Patient: Greater than 30
--- NOTE | 2023-01-04 12:06 | P.HPIM ---
History of Present Illness H&P Date: 01/03/23 Chief Complaint: Could not speak words This is a pleasant 82-year-old patient who follows with Dr. Chaidez. Chronic stable medical conditions include asthma, hypertension, hyperlipidemia, osteoarthritis. I saw the patient to ER. Patient is accompanied by her . Around 10 AM she noted that she was unable to complete sentences. Finding words. She is brought into the ER. She was not felt to be candidate for TPA. There is some improvement but not back to baseline. No facial asymmetry no headache. No change in vision. No focal weakness. No trouble walking. Neurology was consulted. Review of systems: GEN.: Tired EYES: None HEENT: None NECK: None RESPIRATORY: None CARDIOVASCULAR: None GASTROINTESTINAL: None GENITOURINARY: None MUSCULOSKELETAL: Joint pains LYMPHATICS: None HEMATOLOGICAL: None PSYCHIATRY: None NEUROLOGICAL: As above Past medical history to include: Asthma, hypertension, hyperlipidemia, post herpetic pain. In the ear issues causing balance problem. Anxiety. Physical examination: VITAL SIGNS: 97.6, 90, 18, 172/68, 97% on room air GENERAL: BMI 25.7, declining but awake slightly anxious. EYES: Pupils equal. Conjunctiva normal. HEENT: External appearance of nose and ears normal, oral cavity grossly normal. NECK: JVD not raised; masses not palpable. HEART: First and second heart sounds are normal; no edema. LUNGS: Respiratory rate normal; clear to auscultation. ABDOMEN: Soft, nontender, liver spleen not palpable, no masses palpable. PSYCH: Alert and oriented x3; mood and affect slightly anxiousl. MUSCULOSKELETAL:No Clubbing/cyanosis;muscles-grossly intact. OA NEUROLOGICAL: Cranial nerves grossly intact; no facial asymmetry, power and sensation grossly intact. Some trouble word finding. LYMPHATICS: No lymph nodes palpable in the axilla and neck INVESTIGATIONS, reviewed in the clinical context: White count 8.5 hemoglobin 15.2 platelets 267 potassium 3.7 BUN 20 creatinine 0.67 glucose 117 LDL 88.6 EKG tracing personally reviewed by me-normal sinus rhythm. A bit poor baseline. Poor R-wave progression. Chest x-ray film personally reviewed by me-unremarkable CT angiography head and neck: Unremarkable CT brain without contrast: No acute process Assessment and plan: -Acute stroke suspected in the Broca area. Unremarkable on the computed tomography scan. Will need MRI. Aspirin. Lipitor. Neuro checks. Neurology consult. -Essential hypertension Prinivil 20 mg daily -Hyperlipidemia Lovastatin -Moderate persistent asthma Qvar 80 twice a day Speech therapy. Neurology. MRI of the brain. Carotid Doppler. 2-D echocardiogram. Past Medical History Past Medical History: Asthma, COPD, Hyperlipidemia, Hypertension Additional Past Medical History / Comment(s): pain-shingles abdomen rt side and back, inner ear issue with occasional dizziness History of Any Multi-Drug Resistant Organisms: None Reported Past Surgical History: Orthopedic Surgery Additional Past Surgical History / Comment(s): scar tissue removal from neck. d&c , left hip surgery Past Anesthesia/Blood Transfusion Reactions: No Reported Reaction Past Psychological History: Anxiety, Depression Smoking Status: Never smoker Past Alcohol Use History: None Reported Past Drug Use History: None Reported - Past Family History Mother Family Medical History: CVA/TIA Father Family Medical History: Myocardial Infarction ([place]) Medications and Allergies Home Medications Medication Instructions Recorded Confirmed Type lisinopriL [Prinivil] 20 mg PO DAILY 08/22/16 01/03/23 History Albuterol Inhaler [Ventolin Hfa 2 puff INHALATION RT-QID PRN 01/03/23 01/03/23 History Inhaler] Beclomethasone Dip 80 Mcg/Puff 2 puff INHALATION RT-BID 01/03/23 01/03/23 History [Qvar 80 mcg] Calcium Carbonate [Calcium] 600 mg PO DAILY 01/03/23 01/03/23 History Lovastatin [Mevacor] 80 mg PO HS 01/03/23 01/03/23 History Allergies Allergy/AdvReac Type Severity Reaction Status Date / Time citalopram hydrobromide AdvReac "It Verified 01/03/23 14:39 [From Celexa] drugged me too much" Physical Exam Vitals: Vital Signs Temp Pulse Pulse Resp BP BP Pulse Ox 01/04/23 08:00 87 16 186/94 95 01/04/23 07:50 96 01/04/23 04:00 98 F 89 16 160/84 96 01/03/23 23:37 98 F 98 15 166/87 93 L 01/03/23 20:00 98.3 F 91 16 146/79 93 L 01/03/23 18:36 97.7 F 105 H 20 186/83 93 L 01/03/23 18:00 98.0 F 92 20 175/80 97 01/03/23 17:00 97.4 F L 92 18 176/68 97 01/03/23 16:00 97.6 F 90 18 172/68 97 01/03/23 15:00 97.6 F 98 18 177/82 97 01/03/23 14:45 98.0 F 116 H 20 206/137 96 01/03/23 14:15 97.8 F 116 H 20 187/100 97 01/03/23 14:00 97.8 F 120 H 18 190/96 96 01/03/23 13:55 97.9 F 120 H 120 H 20 193/103 96 Intake and Output 01/03/23 01/04/23 01/04/23 22:59 06:59 14:59 Intake Total 1140 118 Output Total 500 Balance 640 118 Intake: Intake, IV Titration 600 Amount Sodium Chloride 0.9% 1, 600 000 ml @ 100 mls/hr IV . Q10H [facility] Rx#:[id number] Oral 540 118 Output: Urine 500 Other: Voiding Method External Catheter External Catheter External Catheter Weight 61.779 kg Results CBC & Chem 7: 01/03/23 14:05 01/03/23 14:05 Labs: Abnormal Lab Results - Last 24 Hours (Table) 01/03/23 01/03/23 01/03/23 Range/Units 14:05 14:05 14:05 Hct 46.1 H (34.0-46.0) % Chloride 97 L (98-107) mmol/L Carbon Dioxide 32 H (22-30) mmol/L BUN 20 H (7-17) mg/dL Glucose 117 H (74-99) mg/dL POC Glucose (mg/dL) 126 H (70-110) mg/dL HDL Cholesterol (40.00-60.00) mg/dL 01/03/23 Range/Units 14:15 Hct (34.0-46.0) % Chloride (98-107) mmol/L Carbon Dioxide (22-30) mmol/L BUN (7-17) mg/dL Glucose (74-99) mg/dL POC Glucose (mg/dL) (70-110) mg/dL HDL Cholesterol 70.60 H (40.00-60.00) mg/dL Thrombosis Risk Factor Assmnt - Choose All That Apply Other Risk Factors: Yes Each Risk Factor Represents 3 Points: Age 75 years or older Thrombosis Risk Factor Assessment Total Risk Factor Score: 3 Thrombosis Risk Factor Assessment Level: Moderate Risk
[2023-01-04] MEDS: CLOPIDOGREL 75 MG TAB PO SCH (12:31)
--- NOTE | 2023-01-04 12:48 | CA ---
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 Tietze. Technical Quality: Poor Contrast 1: Total Dose (mL): Contrast 2: Total Dose (mL): MEASUREMENTS (Male / Female) Normal Values 2D ECHO LV Diastolic Diameter PLAX 3.4 cm 4.2 - 5.9 / 3.9 - 5.3 cm LV Systolic Diameter PLAX 1.9 cm IVS Diastolic Thickness 1.0 cm 0.6 - 1.0 / 0.6 - 0.9 cm LVPW Diastolic Thickness 1.2 cm 0.6 - 1.0 / 0.6 - 0.9 cm LV Relative Wall Thickness 0.6 RV Internal Dim ED PLAX 1.9 cm LA Systolic Diameter LX 3.5 cm 3.0 - 4.0 / 2.7 - 3.8 cm LV Diastolic Volume MOD BP 39.3 cm??? 67 - 155 / 56 - 104 cm??? LV Systolic Volume MOD BP 21.0 cm??? 22 - 58 / 19 - 49 cm??? LV Ejection Fraction MOD BP 46.4 % >= 55 % LV Diastolic Volume MOD 4C 34.3 cm??? LV Systolic Volume MOD 4C 22.3 cm??? LV Ejection Fraction MOD 4C 35.0 % LV Diastolic Length 4C 6.7 cm LV Systolic Length 4C 6.2 cm LV Diastolic Volume MOD 2C 43.2 cm??? LV Systolic Volume MOD 2C 18.4 cm??? LV Ejection Fraction MOD 2C 57.3 % LV Diastolic Length 2C 7.0 cm LV Systolic Length 2C 5.7 cm Ascending Aorta Diameter 2.7 cm M-MODE Aortic Root Diameter MM 2.3 cm LA Systolic Diameter MM 3.5 cm LA Ao Ratio MM 1.5 DOPPLER AV Peak Velocity 124.1 cm/s AV Peak Gradient 6.2 mmHg MV Peak Velocity 117.5 cm/s MV Peak Gradient 5.5 mmHg MV Mean Velocity 72.5 cm/s MV Mean Gradient 2.5 mmHg MV Velocity Time Integral 24.1 cm Mitral E Point Velocity 86.4 cm/s Mitral A Point Velocity 106.7 cm/s Mitral E to A Ratio 0.8 MV Deceleration Time 140.1 ms MV E' Velocity 6.3 cm/s Mitral E to MV E' Ratio 13.7 TR Peak Velocity 71.4 cm/s TR Peak Gradient 2.0 mmHg Right Ventricular Systolic Press 7.0 mmHg PV Peak Velocity 87.0 cm/s PV Peak Gradient 3.0 mmHg FINDINGS Left Ventricle Left ventricular ejection fraction is estimated at 50-55 %. Grade 1 diastolic dysfunction. Mild concentric left ventricular hypertrophy. Right Ventricle Normal right ventricular size and function. Right Atrium Normal right atrial size. Left Atrium Left atrial dilatation. Mitral Valve Mitral valve thickened. [id number] mitral stenosis. Trace to mild mitral regurgitation. Aortic Valve Trileaflet aortic valve. Diffuse thickening (sclerosis) of the aortic valve cusps without reduced excursion. Tricuspid Valve Trace to mild tricuspid regurgitation. Pulmonic Valve Pulmonic valve not well visualized. Pericardium Normal pericardium. No pericardial effusion. Aorta Normal size aortic root and proximal ascending aorta. CONCLUSIONS Left ventricular ejection fraction 50-55% Mild LVH Mild mitral regurgitation Trace to mild tricuspid regurgitation No pericardial effusion Previewed by: Dr. Ian Duran DO (Electronically Signed) Final Date: 04 January 2023 12:47
--- NOTE | 2023-01-04 17:08 | P.PN ---
Progress Note - Text Progress Note Date: 01/04/23 Chief Complaint: Could not speak words This is a pleasant 82-year-old patient who follows with Dr. Chaidez. Chronic stable medical conditions include asthma, hypertension, hyperlipidemia, osteoarthritis. I saw the patient to ER. Patient is accompanied by her . Around 10 AM she noted that she was unable to complete sentences. Finding words. She is brought into the ER. She was not felt to be candidate for TPA. There is some improvement but not back to baseline. No facial asymmetry no headache. No change in vision. No focal weakness. No trouble walking. Neurology was consulted. 01/03/2023: Speech is better but not back to baseline. Pending MRI. at the bedside. No other neurological symptoms. to increase activity. Patient's past 24 hours of presentation. Blood pressure running on the high side. Start Zestoretic 20/12.5 twice a day. Active Medications Albuterol Sulfate (Albuterol Hfa Inhaler) 2 puff INHALATION RT-QID PRN PRN Reason: Shortness Of Breath Aspirin (Aspirin 81 Mg) 81 mg PO DAILY [facility] Atorvastatin Calcium (Atorvastatin 20 Mg Tab) 20 mg PO HS [facility] Calcium Carbonate/Glycine (Calcium Carbonate 500 Mg Chewable) 500 mg PO DAILY [facility] Last Admin: 01/04/23 08:59 Dose: 500 mg Clopidogrel Bisulfate (Clopidogrel 75 Mg Tab) 75 mg PO DAILY [facility] Last Admin: 01/04/23 12:31 Dose: 75 mg Fluticasone Propionate (Fluticasone 110 Mcg Inhaler) 2 puff INHALATION RT-BID [facility] Last Admin: 01/04/23 07:50 Dose: 2 puff Heparin Sodium (Porcine) (Heparin Sodium,Porcine/Pf 5,000 Unit/0.5 Ml Syringe) 5,000 unit SQ Q8HR [facility] Last Admin: 01/04/23 16:36 Dose: 5,000 unit Sodium Chloride (Saline 0.9%) 1,000 mls @ 100 mls/hr IV .Q10H [facility] Last Admin: 01/04/23 13:00 Dose: 100 mls/hr Lisinopril (Lisinopril 20 Mg Tab) 20 mg PO DAILY [facility] Last Admin: 01/04/23 08:59 Dose: 20 mg Past medical history to include: Asthma, hypertension, hyperlipidemia, post herpetic pain. In the ear issues causing balance problem. Anxiety. Physical examination: VITAL SIGNS: Afebrile, 83, 16, 162 / 75, 96% room air GENERAL: BMI 25.7, sitting up in bed, comfortable. EYES: Pupils equal. Conjunctiva normal. HEENT: External appearance of nose and ears normal, oral cavity grossly normal. NECK: JVD not raised; masses not palpable. HEART: First and second heart sounds are normal; no edema. LUNGS: Respiratory rate normal; clear to auscultation. ABDOMEN: Soft, nontender, liver spleen not palpable, no masses palpable. PSYCH: Alert and oriented x3; mood and affect slightly anxiousl. MUSCULOSKELETAL:No Clubbing/cyanosis;muscles-grossly intact. OA NEUROLOGICAL: Cranial nerves grossly intact; no facial asymmetry, power and sensation grossly intact. Very little trouble finding words occasionally INVESTIGATIONS, reviewed in the clinical context: 2-D echocardiogram. EF 50-55%. No thrombus reported White count 8.5 hemoglobin 15.2 platelets 267 potassium 3.7 BUN 20 creatinine 0.67 glucose 117 LDL 88.6 EKG tracing personally reviewed by me-normal sinus rhythm. A bit poor baseline. Poor R-wave progression. Chest x-ray film personally reviewed by me-unremarkable CT angiography head and neck: Unremarkable CT brain without contrast: No acute process Assessment and plan: -Acute stroke suspected in the Broca area. Unremarkable on the computed tomography scan. Aspirin. Plavix Lipitor. Neuro checks. Neurology following. Pending MRI -Essential hypertension uncontrolled Zestoretic 20/12.5 one tablet twice a day start today -Hyperlipidemia Lovastatin -Moderate persistent asthma Qvar 80 twice a day Speech therapy. Neurology. MRI pending discussed with patient and .
[2023-01-04] MEDS: ATORVASTATIN 20 MG TAB PO SCH (20:04)
[2023-01-04] MEDS: LISINOPRIL-HCTZ 20-12.5 MG 1 EACH TAB PO SCH (20:04)
[2023-01-05] MEDS: FLUTICASONE 110 MCG INHALER INHALATION SCH ×2 (07:29→21:48)
[2023-01-05] MEDS: SODIUM CHLORIDE 0.9% 1,000 ML IV SCH ×2 (08:59→16:13)
[2023-01-05] MEDS: LISINOPRIL-HCTZ 20-12.5 MG 1 EACH TAB PO SCH ×2 (09:01→20:28)
[2023-01-05] MEDS: CALCIUM CARBONATE 500 MG CHEWABLE PO SCH (09:01)
[2023-01-05] MEDS: HEPARIN SODIUM,PORCINE/PF 5,000 UNIT/0.5 ML SYRINGE SQ SCH ×3 (09:01→23:14)
[2023-01-05] MEDS: CLOPIDOGREL 75 MG TAB PO SCH (09:01)
[2023-01-05] MEDS: ASPIRIN 81 MG PO SCH (09:01)
--- NOTE | 2023-01-05 11:44 | P.PN ---
Subjective Progress Note Date: 01/05/23 The patient is seen at bedside and feels at baseline. Denies of any new neurological issues. Objective - Vital Signs Vital signs: Vital Signs Temp 97.8 F 01/05/23 03:49 Pulse 90 01/05/23 08:00 Resp 16 01/05/23 08:00 BP 189/92 01/05/23 08:00 Pulse Ox 94 L 01/05/23 08:00 FiO2 Intake & Output 01/04/23 01/05/23 01/05/23 18:59 06:59 18:59 Intake Total 1398 2280 118 Output Total 2100 800 Balance 1398 180 -682 Intake: Intake, IV Titration 800 1200 Amount Sodium Chloride 0.9% 1, 800 1200 000 ml @ 100 mls/hr IV . Q10H [facility] Rx#:[id number] Oral 598 1080 118 Output: Urine 2100 800 Other: Voiding Method External Catheter External Catheter External Catheter # Bowel Movements 1 - Exam GENERAL: The patient is lying in bed and is not in acute distress. NEUROLOGICAL: Higher mental function: The patient is awake, alert, oriented to self, place and time. Patient is following commands. No aphasia and no neglect. Cranial nerves: The pupils are round, equal and reactive to light and accommoda tion. Visual marrufo are full to confrontation throughout. Extraocular movement is intact no nystagmus is noted. Facial sensation is normal to touch throughout. The facial strength is normal throughout. Hearing is normal bilaterally to hand rub. Tongue is midline and moved [id number] without any difficulty. No dysarthria is noted. Shoulder shrug is normal bilaterally. Motor: The strength is 5 over 5 throughout. Normal tone and bulk. Cerebellum: Normal finger to nose bilaterally. Sensation: Sensation is normal to touch throughout. Reflexes (right/left): 2+ throughout. Plantars are mute bilaterally. Some of the work-up during this hospital visit consisted of: On presentation her blood pressure was 193/103, heart rate 120. It was high 206/137 Lipid panel: TG 93, cholestrol 178, LDL [address] of the head is reported as no acute intracranial processes. Nonspecific white matter changes likely secondary due to chronic small vessel ischemic disease. I personally reviewed the CT of the head and I agree with report. CT angiography of the head and neck was reported as no evidence of dissection of the cervical internal carotid arteries or vertebral artery or any evidence of significant stenosis at the carotid bifurcation. No evidence of high-grade stenosis or intracranial aneurysm. 2D echo: Is reported as left ventricle ejection fraction of 50-55%. Mild left ventricle hypertrophy. Mild mitral regurgitation. Left atrial dilation but does not mention to what degree. - Labs CBC & Chem 7: 01/03/23 14:05 01/03/23 14:05 Assessment and Plan Assessment: Transient ischemic attack (expressive aphasia) Accelerated hypertension (was as high as 206/137)---continues to be elevated History of hypertension Hyperlipidemia Plan: Continue dual antiplatlelets: Aspirin to 81 mg daily and Plavix 75 mg daily (was not on antiplatelets at home). To be on dual antiplatelets for 21 days and after that stop Plavix but indefinitely be on ASA. Continue Lipitor 20 mg daily at bedtime for second stroke prophylaxis MRI of the brain, is pending Continue neuro checks Continue Cardiac monitoring PT OT and LINE TECHNICIAN are consulted We'll defer the rest of the medical management to primary team For DVT prophylaxis the patient is on subcu heparin 5000 units every hours Upon discharge recommend the patient to follow-up with a neurologist in outpatient within 1-2 weeks. The plan is discussed with patient and her nurse. Dr. Sanders will start neurology service tomorrow A.M. Time with Patient: Less than 30
--- NOTE | 2023-01-05 12:45 | P.PN ---
Progress Note - Text Progress Note Date: 01/05/23 Chief Complaint: Could not speak words This is a pleasant 82-year-old patient who follows with Dr. Chaidez. Chronic stable medical conditions include asthma, hypertension, hyperlipidemia, osteoarthritis. I saw the patient to ER. Patient is accompanied by her . Around 10 AM she noted that she was unable to complete sentences. Finding words. She is brought into the ER. She was not felt to be candidate for TPA. There is some improvement but not back to baseline. No facial asymmetry no headache. No change in vision. No focal weakness. No trouble walking. Neurology was consulted. 01/03/2023: Speech is better but not back to baseline. Pending MRI. at the bedside. No other neurological symptoms. to increase activity. Patient's past 24 hours of presentation. Blood pressure running on the high side. Start Zestoretic 20/12.5 twice a day. 01/05/2023: Patient's speech is back to normal. Pending MRI. Requesting some Ativan as she is claustrophobic. Discussed with nurse. Oral intake fair. Blood pressure running high. Start Lopressor 25 mg twice a day Active Medications Albuterol Sulfate (Albuterol Hfa Inhaler) 2 puff INHALATION RT-QID PRN PRN Reason: Shortness Of Breath Aspirin (Aspirin 81 Mg) 81 mg PO DAILY [facility] Last Admin: 01/05/23 09:01 Dose: 81 mg Atorvastatin Calcium (Atorvastatin 20 Mg Tab) 20 mg PO HS [facility] Last Admin: 01/04/23 20:04 Dose: 20 mg Calcium Carbonate/Glycine (Calcium Carbonate 500 Mg Chewable) 500 mg PO DAILY [facility] Last Admin: 01/05/23 09:01 Dose: 500 mg Clopidogrel Bisulfate (Clopidogrel 75 Mg Tab) 75 mg PO DAILY [facility] Last Admin: 01/05/23 09:01 Dose: 75 mg Fluticasone Propionate (Fluticasone 110 Mcg Inhaler) 2 puff INHALATION RT-BID [facility] Last Admin: 01/05/23 07:29 Dose: 2 puff Lisinopril/HCTZ (Lisinopril-Hctz 20-12.5 Mg 1 Each Tab) 1 each PO BID [facility] Last Admin: 01/05/23 09:01 Dose: 1 each Heparin Sodium (Porcine) (Heparin Sodium,Porcine/Pf 5,000 Unit/0.5 Ml Syringe) 5,000 unit SQ Q8HR [facility] Last Admin: 01/05/23 09:01 Dose: 5,000 unit Sodium Chloride (Saline 0.9%) 1,000 mls @ 100 mls/hr IV .Q10H [facility] Last Admin: 01/05/23 08:59 Dose: 100 mls/hr Past medical history to include: Asthma, hypertension, hyperlipidemia, post herpetic pain. In the ear issues causing balance problem. Anxiety. Physical examination: VITAL SIGNS: 97.8, 89, 16, 176/94, 93% room air GENERAL: BMI 25.7, sitting up in bed, comfortable. EYES: Pupils equal. Conjunctiva normal. HEENT: External appearance of nose and ears normal, oral cavity grossly normal. NECK: JVD not raised; masses not palpable. HEART: First and second heart sounds are normal; no edema. LUNGS: Respiratory rate normal; clear to auscultation. ABDOMEN: Soft, nontender, liver spleen not palpable, no masses palpable. PSYCH: Alert and oriented x3; mood and affect slightly anxiousl. MUSCULOSKELETAL:No Clubbing/cyanosis;muscles-grossly intact. OA NEUROLOGICAL: Cranial nerves grossly intact; no facial asymmetry, power and sensation grossly intact. Speech back to normal INVESTIGATIONS, reviewed in the clinical context: 2-D echocardiogram. EF 50-55%. No thrombus reported White count 8.5 hemoglobin 15.2 platelets 267 potassium 3.7 BUN 20 creatinine 0.67 glucose 117 LDL 88.6 EKG tracing personally reviewed by me-normal sinus rhythm. A bit poor baseline. Poor R-wave progression. Chest x-ray film personally reviewed by me-unremarkable CT angiography head and neck: Unremarkable CT brain without contrast: No acute process Assessment and plan: -Acute stroke suspected in the Broca area. Unremarkable on the computed tomography scan. Aspirin. Plavix Lipitor. Neuro checks. Neurology following. Pending MRI -Essential hypertension uncontrolled Zestoretic 20/12.5 one tablet twice a day. Start Lopressor 25 mg twice a day -Hyperlipidemia Lovastatin -Moderate persistent asthma Qvar 80 twice a day Speech therapy. Neurology. Start Lopressor 25 mg twice a day. Pending MRI.
[2023-01-05] MEDS ORDERED: LORazepam 1 MG TAB PO STA (16:06)
[2023-01-05] MEDS: METOPROLOL TARTRATE 25 MG TAB PO SCH ×2 (16:13→20:28)
[2023-01-05] MEDS: ATORVASTATIN 20 MG TAB PO SCH (20:28)
[2023-01-06 04:16] VITALS: RESP 18
[2023-01-06] MEDS: CALCIUM CARBONATE 500 MG CHEWABLE PO SCH (04:29)
[2023-01-06] MEDS: SODIUM CHLORIDE 0.9% 1,000 ML IV SCH (06:34)
[2023-01-06] MEDS: FLUTICASONE 110 MCG INHALER INHALATION SCH ×2 (07:54→07:59)
[2023-01-06] MEDS: LISINOPRIL-HCTZ 20-12.5 MG 1 EACH TAB PO SCH (08:15)
[2023-01-06] MEDS: CLOPIDOGREL 75 MG TAB PO SCH (08:16)
[2023-01-06] MEDS: ASPIRIN 81 MG PO SCH (08:16)
[2023-01-06] MEDS: HEPARIN SODIUM,PORCINE/PF 5,000 UNIT/0.5 ML SYRINGE SQ SCH (08:16)
[2023-01-06] MEDS: METOPROLOL TARTRATE 25 MG TAB PO SCH (08:16)
[2023-01-06 08:21] VITALS: TEMP 97.8
[2023-01-06] MEDS ORDERED: LORazepam 1 MG TAB PO STA (09:25)
[2023-01-06] MEDS ORDERED: METOPROLOL TARTRATE 25 MG TAB PO STA (10:15)
--- NOTE | 2023-01-06 11:07 | MR ---
EXAMINATION TYPE: MR brain wo con DATE OF EXAM: 01/06/2023 COMPARISON: CT brain 3 days ago. HISTORY: NEURO DEFICIT, ACUTE STROKE SUSPECTED TECHNIQUE: Multiplanar, multisequence imaging of the brain and brainstem is performed without IV cont rast. FINDINGS: Diffusion weighted images demonstrate no evidence of a recent infarct or other diffusion abnormality. There is mild to moderate ventricular and sulcal prominence. There is moderate to severe T2 hyperinte nsity in the white matter bilaterally being confluent in appearance of periventricular levels. Midline structures demonstrate normal morphology. The craniocervical junction appears within normal limits. Normal vascular flow voids are present. Nasal septum is deviated to right of midline. The román bes are intact and the visualized sinuses are clear. IMPRESSION: No MRI evidence for recent infarct. There is mild to moderate diffuse cerebral atrophy an d fairly advanced chronic small vessel ischemic change present.
--- NOTE | 2023-01-06 13:12 | P.PN ---
Subjective Progress Note Date: 01/06/23 Patient was initially seen by Dr. Shiraz Sanchez. Please refer to his note for details. Patient is a 82-year-old female, came with TIA manifesting with expressive aphasia. Patient states her speech is back to normal. She is just exhausted from recent MRI or for which she was given some sedation. Patient's son was also present today. He also believes that she is back to baseline. Patient at present is comfortably laying in the bed, somnolent, groggy. Objective - Vital Signs Vital signs: Vital Signs Temp 97.8 F 01/06/23 08:00 Pulse 74 01/06/23 08:00 Resp 18 01/06/23 08:00 BP 203/91 01/06/23 08:00 Pulse Ox 95 01/06/23 08:00 FiO2 Intake & Output 01/05/23 01/06/23 01/06/23 18:59 06:59 18:59 Intake Total 354 1740 118 Output Total 2600 1500 Balance -2246 240 118 Intake: Intake, IV Titration 1200 Amount Sodium Chloride 0.9% 1, 1200 000 ml @ 100 mls/hr IV . Q10H [facility] Rx#:[id number] Oral 354 540 118 Output: Urine 2600 1500 Other: Voiding Method External Catheter External Catheter External Catheter - Exam Patient is somnolent from recently undergoing MRI with sedation. Her speech and language functions are normal. Patient can name and repeat very well. Her comprehension is intact. Her visual marrufo are full, extraocular muscles are intact. Face is symmetric. Tongue protrudes the midline. Muscle strength is normal. No ataxia. - Labs CBC & Chem 7: 01/03/23 14:05 01/03/23 14:05 Assessment and Plan Assessment: Transient ischemic attack (expressive aphasia) Accelerated hypertension (was as high as 206/137)---continues to be elevated History of hypertension Hyperlipidemia Plan: Continue dual antiplatlelets: Aspirin to 81 mg daily and Plavix 75 mg daily (was not on antiplatelets at home). To be on dual antiplatelets for 21 days and after that stop Plavix but indefinitely be on ASA. MRI of the brain revealed no acute ischemic process. There is mild to moderate diffuse cerebral atrophy and fairly advanced chronic small vessel ischemic change. I personally reviewed MRI, I agree with the findings. Lipid panel: TG 93, cholestrol 178, LDL 88 and HDL 70. Continue Lipitor 20 mg daily at bedtime. We'll check hemoglobin A1c CT angiography of the head and neck was reported as no evidence of dissection of the cervical internal carotid arteries or vertebral artery or any evidence of significant stenosis at the carotid bifurcation. No evidence of high-grade stenosis or intracranial aneurysm. 2D echo: Is reported as left ventricle ejection fraction of 50-55%. Mild left ventricle hypertrophy. Mild mitral regurgitation. Left atrial dilation. Continue neuro checks Continue Cardiac monitoring PT OT and [employer] are consulted We'll defer the rest of the medical management to primary team For DVT prophylaxis the patient is on subcu heparin 5000 units every hours Upon discharge recommend the patient to follow-up with a neurologist in outpatient within 1-2 weeks. Neurologically clear.
[2023-01-06 13:59] VITALS: PULSE 78
[2023-01-06 15:41] VITALS: BP 135/73
--- NOTE | 2023-01-06 16:53 | P.DS ---
Providers Date of admission: 01/03/23 16:20 Expected date of discharge: 01/06/23 Attending physician: Natan Brown Consults: 01/03/23 16:21 Consult Physician Routine Consulting Provider: Shiraz Sanchez Consult Reason/Comments: CVA Do you want consulting provider notified?: Yes Primary care physician: [facility] Course: Chief Complaint: Could not speak words This is a pleasant 82-year-old patient who follows with Dr. Chaidez. Chronic stable medical conditions include asthma, hypertension, hyperlipidemia, osteoarthritis. I saw the patient to ER. Patient is accompanied by her . Around 10 AM she noted that she was unable to complete sentences. Finding words. She is brought into the ER. She was not felt to be candidate for TPA. There is some improvement but not back to baseline. No facial asymmetry no headache. No change in vision. No focal weakness. No trouble walking. Neurology was consulted. 01/03/2023: Speech is better but not back to baseline. Pending MRI. at the bedside. No other neurological symptoms. to increase activity. Patient's past 24 hours of presentation. Blood pressure running on the high side. Start Zestoretic 20/12.5 twice a day. 01/05/2023: Patient's speech is back to normal. Pending MRI. Requesting some Ativan as she is claustrophobic. Discussed with nurse. Oral intake fair. Blood pressure running high. Start Lopressor 25 mg twice a day 01/14/2023: Underwent MRI today. Sleepy after receiving Ativan post MRI. But answering questions.- negative for stroke. Blood pressure was running high. Additional Lopressor 25 given. Increase to 50 mg twice a day. Discussed with at the bedside. Follow-up in neurology outpatient. Discussion and discharge planning more than 35 minutes Past medical history to include: Asthma, hypertension, hyperlipidemia, post herpetic pain. In the ear issues causing balance problem. Anxiety. Physical examination: VITAL SIGNS: 78, 18, 135 with 73, 94% room air GENERAL: Up in chair comfortable. EYES: Pupils equal. Conjunctiva normal. HEENT: External appearance of nose and ears normal, oral cavity grossly normal. NECK: JVD not raised; masses not palpable. HEART: First and second heart sounds are normal; no edema. LUNGS: Respiratory rate normal; clear to auscultation. ABDOMEN: Soft, nontender, liver spleen not palpable, no masses palpable. PSYCH: Sleepy but able to answer questions MUSCULOSKELETAL:No Clubbing/cyanosis;muscles-grossly intact. OA NEUROLOGICAL: Cranial nerves grossly intact; no facial asymmetry, power and sensation grossly intact. Speech back to normal INVESTIGATIONS, reviewed in the clinical context: Brain MRI: Negative for stroke 2-D echocardiogram. EF 50-55%. No thrombus reported White count 8.5 hemoglobin 15.2 platelets 267 potassium 3.7 BUN 20 creatinine 0.67 glucose 117 LDL 88.6 EKG tracing personally reviewed by me-normal sinus rhythm. A bit poor baseline. Poor R-wave progression. Chest x-ray film personally reviewed by me-unremarkable CT angiography head and neck: Unremarkable CT brain without contrast: No acute process Assessment and plan: -TIA Aspirin. Plavix-21 days Lipitor. Neuro checks. Neurology following. Negative MRI -Essential hypertension uncontrolled Zestoretic 20/12.5 one tablet twice a day. Increase Lopressor 50 mg twice a day -Hyperlipidemia Lovastatin -Moderate persistent asthma Qvar 80 twice a day Disposition: Home Plan - Discharge Summary New Discharge Prescriptions: New Aspirin 81 mg PO DAILY tab Atorvastatin [Lipitor] 40 mg PO HS #30 tablet Lisinopril-Hctz 20-12.5 mg [Zestoretic 20-12.5] 1 each PO BID #60 tab Metoprolol Tartrate [Lopressor] 50 mg PO BID #60 tab Clopidogrel [Plavix] 75 mg PO DAILY #30 tab Continue Calcium Carbonate [Calcium] 600 mg PO DAILY Beclomethasone Dip 80 Mcg/Puff [Qvar 80 mcg] 2 puff INHALATION RT-BID Albuterol Inhaler [Ventolin Hfa Inhaler] 2 puff INHALATION RT-QID PRN PRN Reason: Shortness Of Breath Discontinued lisinopriL [Prinivil] 20 mg PO DAILY Lovastatin [Mevacor] 80 mg PO HS Discharge Medication List Albuterol Inhaler [Ventolin Hfa Inhaler] 2 puff INHALATION RT-QID PRN 01/03/23 [History] Beclomethasone Dip 80 Mcg/Puff [Qvar 80 mcg] 2 puff INHALATION RT-BID 01/03/23 [History] Calcium Carbonate [Calcium] 600 mg PO DAILY 01/03/23 [History] Aspirin 81 mg PO DAILY tab 01/06/23 [Rx] Atorvastatin [Lipitor] 40 mg PO HS #30 tablet 01/06/23 [Rx] Clopidogrel [Plavix] 75 mg PO DAILY #30 tab 01/06/23 [Rx] Lisinopril-Hctz 20-12.5 mg [Zestoretic 20-12.5] 1 each PO BID #60 tab 01/06/23 [Rx] Metoprolol Tartrate [Lopressor] 50 mg PO BID #60 tab 01/06/23 [Rx] Follow up Appointment(s)/Referral(s): [facility], [NON-STAFF] - Jean Claude Chaidez DO [Primary Care Provider] - 1-2 days (Office will call you with appointment date and time) Melvin Camara MD [Medical Doctor] - 1 Week (please call office to be seen in one week) Patient Instructions/Handouts: Transient Ischemic Attack (DC) Activity/Diet/Wound Care/Special Instructions: DC after MRI if cleared by neurology Discharge Disposition: HOME SELF-CARE
[2023-01-06] MEDS ORDERED: METOPROLOL TARTRATE 50 MG TAB PO SCH (21:00)
== END 2023-01-06 15:46 | disposition home or self-care (01) | DRG 69 ==
LOC: EC 13:54 → 3SCARD 16:20
PROVIDERS: ADMIT Hospitalist; ATTEND Hospitalist
PROC: B246ZZZ Ultrasonography of Right and Left Heart (ICD-10-PCS; principal; 2023-01-04)
DX: G45.9 Transient cerebral ischemic attack, unspecified (principal); R47.01 Aphasia; F32.A Depression, unspecified; I10 Essential (primary) hypertension; J45.40 Moderate persistent asthma, uncomplicated; R29.701 NIHSS score 1; I08.1 Rheumatic disorders of both mitral and tricuspid valves; E78.5 Hyperlipidemia, unspecified; M19.90 Unspecified osteoarthritis, unspecified site; F40.240 Claustrophobia; Z79.02 Long term (current) use of antithrombotics/antiplatelets; Z79.82 Long term (current) use of aspirin; Z79.899 Other long term (current) drug therapy
CPT/HCPCS: 36415; 70450; 70496; 70498; 70551; 71045; 80053; 80061; 82550; 83036; 84484; 85025; 85610; 85730; 93005; 93306; 94760; 96361; 96374; 96375; 99291

== ENCOUNTER 2023-07-28 07:08 | Emergency (ER) | payer MEDICARE ==
[2023-07-28] MEDS ORDERED: MORPHINE SULFATE 2 MG/ML SYRINGE IM STA (07:18)
--- NOTE | 2023-07-28 07:25 | ED ---
Syncope HPI - General Chief Complaint: Syncope Stated Complaint: Fall Time Seen by Provider: 07/28/23 07:09 Source: patient, EMS, RN notes reviewed Mode of arrival: EMS Limitations: no limitations - History of Present Illness Initial Comments: This is a 82-year-old female who presents to the emergency department for a fall and possible syncopal episode. Patient was getting up to use the restroom, when her heard a thud. He went to check on her and found her face down on the ground. Patient has no recollection of this event, leading her to believe that this was probably a syncopal episode. Unsure what the last thing is she remembers. States that she has had syncopal episodes in the past, but cannot remember when. She takes aspirin but no anticoagulants. Currently complaining of pain to the right shoulder and right hip. She was ambulatory on scene per EMS. Denies any fevers, chills, sore throat, cough, dyspnea, chest pain, palpitations, abdominal pain, nausea, vomiting, diarrhea, back pain, or headaches. MD Complaint: loss of consciousness Prodromal Symptoms: none - Related Data Home Medications Medication Instructions Recorded Confirmed Albuterol Inhaler [Ventolin Hfa 2 puff INHALATION RT-QID PRN 01/03/23 01/03/23 Inhaler] Beclomethasone Dip 80 Mcg/Puff 2 puff INHALATION RT-BID 01/03/23 01/03/23 [Qvar 80 mcg] Calcium Carbonate [Calcium] 600 mg PO DAILY 01/03/23 01/03/23 Previous Rx's Medication Instructions Recorded Aspirin 81 mg PO DAILY tab 01/06/23 Atorvastatin [Lipitor] 40 mg PO HS #30 tablet 01/06/23 Clopidogrel [Plavix] 75 mg PO DAILY #30 tab 01/06/23 Lisinopril-Hctz 20-12.5 mg 1 each PO BID #60 tab 01/06/23 [Zestoretic 20-12.5] Metoprolol Tartrate [Lopressor] 50 mg PO BID #60 tab 01/06/23 Allergies Allergy/AdvReac Type Severity Reaction Status Date / Time citalopram hydrobromide AdvReac "It Verified 07/28/23 07:17 [From Celexa] drugged me too much" Review of Systems ROS Statement: Those systems with pertinent positive or pertinent negative responses have been documented in the HPI. ROS Other: All systems not noted in ROS Statement are negative. Past Medical History Past Medical History: Asthma, COPD, Hyperlipidemia, Hypertension Additional Past Medical History / Comment(s): pain-shingles abdomen rt side and back, inner ear issue with occasional dizziness History of Any Multi-Drug Resistant Organisms: None Reported Past Surgical History: Orthopedic Surgery Additional Past Surgical History / Comment(s): scar tissue removal from neck. d&c , left hip surgery Past Anesthesia/Blood Transfusion Reactions: No Reported Reaction Past Psychological History: Anxiety, Depression Smoking Status: Never smoker Past Alcohol Use History: None Reported Past Drug Use History: None Reported - Past Family History Mother Family Medical History: CVA/TIA Father Family Medical History: Myocardial Infarction (VT) General Exam Limitations: no limitations General appearance: alert, in no apparent distress Head exam: Present: atraumatic, normocephalic, normal inspection Eye exam: Present: normal appearance, PERRL, EOMI. Absent: scleral icterus, co njunctival injection, periorbital swelling Respiratory exam: Present: normal lung sounds bilaterally. Absent: respiratory distress, wheezes, rales, rhonchi, stridor Cardiovascular Exam: Present: regular rate, normal rhythm, normal heart sounds. Absent: systolic murmur, diastolic murmur, rubs, gallop, clicks Extremities exam: Present: other (Tenderness to palpation of the right humeral head. No deformities or ecchymosis. Range of motion limited by pain. 2+ radial pulses. Tenderness to palpation over the right greater trochanter. Range of motion limited by pain. No deformities. 2+ DP and PT pulses. Capillary refill <1 second.) Neurological exam: Present: alert, oriented X3, CN II-XII intact Psychiatric exam: Present: normal affect, normal mood Skin exam: Present: warm, dry, intact, normal color. Absent: rash Course Vital Signs 07/28/23 07/28/23 07:14 08:21 Pulse Rate 86 84 Respiratory 18 18 Rate Blood Pressure 150/68 146/71 O2 Sat by Pulse 95 96 Oximetry Medical Decision Making - Medical Decision Making This is an 82-year-old female who presents to the emergency department for a fall and syncopal episode. Was pt. sent in by a medical professional or institution? @ -No Did you speak to anyone other than the patient for history? @ -Yes, EMS provided the majority of the information, with the patient explaining where her pain was and that she has had a syncopal episode in the past but cannot recall when. Did you review nursing and triage notes? @ -Yes, and I agree, it is accurate with regards to the patient's symptoms. Were old charts reviewed? @ -No Differential Diagnosis? @ -Differential Syncope: Valvular disease, hypertrophic cardiomyopathy, pulmonary embolism, tamponade, tachycardia, bradycardia, VT, hypovolemia, hemorrhage, dissection, anemia, intracranial hemorrhage, seizure, hypoglycemia, carbon monoxide poisoning, this is not meant to be an all-inclusive list. EKG interpreted by me (3pts min.)? @ -EKG interpreted by me demonstrating the following: Sinus bradycardia. Ventricular rate 56 bpm, NE interval 170 ms, QRS duration 77 ms, QTC 433 ms. X-rays interpreted by me (1pt min.)? @ -X-ray of the right shoulder obtained. My interpretation identifies a distal right clavicle fracture. My interpretation of the chest x-ray identifies no rib fractures. My interpretation of the hip x-ray identifies a possible lucency along the greater trochanter. CT interpreted by me (1pt min.)? @ -CT scan of the brain and c-spine obtained. My interpretation identifies a right sided subdural hematoma. U/S interpreted by me (1pt. min.)? @ -Not obtained What testing was considered but not performed? (CT, X-rays, U/S, labs)? Why? @ -None What meds were considered but not given? Why? @ -None Did you discuss the management of the patient with other professionals? @ -Yes, Dr. Eddie Wong at [facility] is the accepting physician. Did you reconcile home meds? @ -No Was smoking cessation discussed for >3mins.? @ -No Was critical care preformed (if so, how long)? @ -No Were there social determinants of health that impacted care today? How? (Homelessness, low income, unemployed, alcoholism, drug addiction, transportation, low edu. Level, literacy, decrease access to med. care, residential, rehab)? @ -No Was there de-escalation of care discussed even if they declined? (Discuss DNR or withdrawal of care, Hospice)? @ -No What co-morbidities impacted this encounter? (DM, HTN, Smoking, COPD, CAD, Cancer, CVA, Hep., AIDS, mental health diagnosis, sleep apnea, morbid obesity)? @ -Asthma, COPD, HTN, HLD Was patient admitted / discharged? @ -Transferred. Lab work obtained revealing signs of mild dehydration and no other actionable findings. She was given a 500 mL bolus of IV fluids. CT scan of the brain and c-spine obtained revealing a trace subdural hematoma along the right tentorium. No midline shift. We subsequently contacted [facility] when these findings returned regarding transfer, as we do not have neurosurgery available here. Patient accepted as a transfer at [facility]. Dr. Wong is the accepting physician. X-ray of the chest, right shoulder, and right hip pending at the time of transfer. I did review the x-ray results when they had returned. This revealed a mildly displaced right distal clavicle fracture and a linear lucency along the right greater trochanter. This is said to most likely relate to a soft tissue artifact, however fracture cannot be excluded. EMS was here for transfer when these results returned and findings were communicated to them. Images also sent to [facility] for review. Undiagnosed new problem with uncertain prognosis? @ -None Drug Therapy requiring intensive monitoring for toxicity (Heparin, Nitro, Insulin, Cardizem)? @ -None Were any procedures done? @ -None Diagnosis/symptom? @ -Syncope, Fall, right subdural hematoma, right clavicle fracture Acute, or Chronic, or Acute on Chronic? @ -Acute Uncomplicated (without systemic symptoms) or Complicated (systemic symptoms)? @ -Uncomplicated Side effects of treatment? @ -None Exacerbation, Progression, or Severe Exacerbation] @ -Not applicable Poses a threat to life or bodily function? @ -Yes This case was discussed in detail with the attending ED physician, Dr. Brandt. Presentation, findings, and treatment plan discussed in detail as well. - Lab Data Result diagrams: 07/28/23 07:19 07/28/23 07:19 Lab Results 07/28/23 07/28/23 07/28/23 Range/Units 07:19 07:19 07:19 WBC 10.5 (3.8-10.6) k/uL RBC 4.44 (3.80-5.40) m/uL Hgb 13.9 (11.4-16.0) gm/dL Hct 42.3 (34.0-46.0) % MCV 95.2 (80.0-100.0) fL MCH 31.2 (25.0-35.0) pg MCHC 32.8 (31.0-37.0) g/dL RDW 13.0 (11.5-15.5) % Plt Count 290 (150-450) k/uL MPV 7.5 Neutrophils % 77 % Lymphocytes % 15 % Monocytes % 6 % Eosinophils % 1 % Basophils % 0 % Neutrophils # 8.1 H (1.3-7.7) k/uL Lymphocytes # 1.5 (1.0-4.8) k/uL Monocytes # 0.6 (0-1.0) k/uL Eosinophils # 0.1 (0-0.7) k/uL Basophils # 0.0 (0-0.2) k/uL PT 10.3 (9.0-12.0) sec INR 1.0 (<1.2) APTT 21.7 L (22.0-30.0) sec Sodium 135 L (137-145) mmol/L Potassium 3.8 (3.5-5.1) mmol/L Chloride 97 L (98-107) mmol/L Carbon Dioxide 32 H (22-30) mmol/L Anion Gap 6 mmol/L BUN 37 H (7-17) mg/dL Creatinine 0.71 (0.52-1.04) mg/dL Est GFR (CKD-EPI)AfAm >90 (>60 ml/min/1.73 sqM) Est GFR (CKD-EPI)NonAf 79 (>60 ml/min/1.73 sqM) Glucose 128 H (74-99) mg/dL Calcium 9.0 (8.4-10.2) mg/dL Total Bilirubin 0.8 (0.2-1.3) mg/dL AST 32 (14-36) U/L ALT 19 (4-34) U/L Alkaline Phosphatase 96 (38-126) U/L Troponin I (0.000-0.034) ng/mL Total Protein 6.7 (6.3-8.2) g/dL Albumin 3.7 (3.5-5.0) g/dL 07/28/23 Range/Units 07:19 WBC (3.8-10.6) k/uL RBC (3.80-5.40) m/uL Hgb (11.4-16.0) gm/dL Hct (34.0-46.0) % MCV (80.0-100.0) fL MCH (25.0-35.0) pg MCHC (31.0-37.0) g/dL RDW (11.5-15.5) % Plt Count (150-450) k/uL MPV Neutrophils % % Lymphocytes % % Monocytes % % Eosinophils % % Basophils % % Neutrophils # (1.3-7.7) k/uL Lymphocytes # (1.0-4.8) k/uL Monocytes # (0-1.0) k/uL Eosinophils # (0-0.7) k/uL Basophils # (0-0.2) k/uL PT (9.0-12.0) sec INR (<1.2) APTT (22.0-30.0) sec Sodium (137-145) mmol/L Potassium (3.5-5.1) mmol/L Chloride (98-107) mmol/L Carbon Dioxide (22-30) mmol/L Anion Gap mmol/L BUN (7-17) mg/dL Creatinine (0.52-1.04) mg/dL Est GFR (CKD-EPI)AfAm (>60 ml/min/1.73 sqM) Est GFR (CKD-EPI)NonAf (>60 ml/min/1.73 sqM) Glucose (74-99) mg/dL Calcium (8.4-10.2) mg/dL Total Bilirubin (0.2-1.3) mg/dL AST (14-36) U/L ALT (4-34) U/L Alkaline Phosphatase (38-126) U/L Troponin I <0.012 (0.000-0.034) ng/mL Total Protein (6.3-8.2) g/dL Albumin (3.5-5.0) g/dL - Radiology Data Radiology results: report reviewed, image reviewed Disposition Clinical Impression: Fall, Syncope, Acute subdural hematoma, Right clavicle fracture Disposition: OTHER INSTITUTION NOT DEFINED Referrals: Jean Claude Chaidez DO [Primary Care Provider] - 1-2 days - Out of Hospital Transfer - Req. Specs Out of Hospital Transfer - Requested Specifics: Other Emergency Center ([facility])
[2023-07-28 07:31] LABS: Basophils % (A) 0 %; Eosinophils # (A) 0.1 k/uL (0-0.7); Eosinophils % (A) 1 %; HCT 42.3 % (34.0-46.0); HGB 13.9 gm/dL (11.4-16.0); Lymphocytes # (A) 1.5 k/uL (1.0-4.8); Lymphocytes % (A) 15 %; MCH 31.2 pg (25.0-35.0); MCHC 32.8 g/dL (31.0-37.0); MCV 95.2 fL (80.0-100.0); Mean Platelet Volume 7.5; Monocytes # (A) 0.6 k/uL (0-1.0); Monocytes % (A) 6 %; Neutrophils # (A) 8.1 k/uL (1.3-7.7); Neutrophils % (A) 77 %; Platelet Count 290 k/uL (150-450); RBC 4.44 m/uL (3.80-5.40); WBC 10.5 k/uL (3.8-10.6)
[2023-07-28 07:33] VITALS: RESP 18
[2023-07-28] MEDS ORDERED: SODIUM CHLORIDE 0.9% 500 ML 500 ML IV STA (07:36)
[2023-07-28 07:41] LABS: ALT 19 U/L (4-34); AST 32 U/L (14-36); African American GFR (CKD) >90 (>60 ml/min/1.73 sqM); Albumin 3.7 g/dL (3.5-5.0); Alkaline Phosphatase 96 U/L (38-126); Anion Gap 6 mmol/L; Blood Urea Nitrogen 37 mg/dL (7-17); Carbon Dioxide 32 mmol/L (22-30); Chloride 97 mmol/L (98-107); Glucose 128 mg/dL (74-99); Non-African American GFR(CKD) 79 (>60 ml/min/1.73 sqM); Potassium 3.8 mmol/L (3.5-5.1); Sodium 135 mmol/L (137-145); Total Bilirubin 0.8 mg/dL (0.2-1.3); Total Protein 6.7 g/dL (6.3-8.2)
[2023-07-28 07:47] LABS: Prothrombin Time 10.3 sec (9.0-12.0)
[2023-07-28 07:53] LABS: Partial Thromboplastin Time 21.7 sec (22.0-30.0)
--- NOTE | 2023-07-28 08:08 | CT ---
EXAMINATION TYPE: CT brain cspine wo con CT DLP: 1274.5 mGycm, Automated exposure control for dose reduction was used. DATE OF EXAM: 07/28/2023 7:57 AM COMPARISON: CT brain 01/03/2023, CT brain C-spine 03/09/2019. CLINICAL INDICATION:Female, 82 years old with history of Syncope, head injury; Syncope with head inju ry TECHNIQUE: Brain: Multiple axial CT images of the brain were obtained without IV contrast. Cspine: Axial CT images from the skull base to the inferior aspect of T2 we obtained without intraven ous contrast. Coronal and sagittal reformatted images were also reviewed. FINDINGS: Brain: Extra-axial spaces: Trace subdural hematoma along the right tentorium (series 21, image 16). Maximum thickness of 4 mm. Ventricular system: Within normal limits Cerebral parenchyma: Cerebral atrophy. No acute intraparenchymal hemorrhage or mass effect. The valle -white junction is well differentiated. Scattered hypoattenuating areas are seen within the white mat ter. Cerebellum: Unremarkable. Mass effect: No evidence of midline shift. Intracranial vasculature: Atherosclerotic calcifications of the intracranial vessels. Soft tissues: Normal. Calvarium/osseous structures: No depressed skull fracture. Paranasal sinuses and mastoid air cells: Clear. Visualized orbits: Bilateral aphakia. Right scleral calcification. Cervical spine: Fracture: None. Osseous structures: Multilevel degenerative disc disease changes with endplate spurring and disc oste ophyte complex's. Multilevel facet arthropathy. Vertebral alignment: Within normal limits. Spinal canal/Neural Foramina: Disc osteophyte complexes at C5-C6 with at least mild spinal canal sten osis. Facet joint uncovertebral joint arthropathy scattered throughout the cervical spine with varyin g degrees of neural foraminal stenosis. Neck soft tissues: Prevertebral soft tissues are within normal limits. Other: The airway is patent. The lung apices are clear. IMPRESSION: 1. Acute trace subdural hematoma along the right tentorium. No midline shift. 2. Nonspecific white matter changes, likely secondary to chronic small vessel ischemic disease. 3. No evidence of cervical spine fracture. 4. Mild multilevel degenerative disc disease. Findings called to and discussed with FAITH Nguyễn on 07/28/2023 at 8:03 AM.
[2023-07-28 08:33] VITALS: BP 146/71; PULSE 84
[2023-07-28] MEDS ORDERED: MORPHINE SULFATE 2 MG/ML SYRINGE IVP STA (09:01)
--- NOTE | 2023-07-28 09:02 | XR ---
EXAMINATION TYPE: XR chest 2V DATE OF EXAM: 07/28/2023 COMPARISON: 01/03/2023 TECHNIQUE: PA and lateral views submitted. HISTORY: Pain FINDINGS: The lungs are clear and there is no pneumothorax, pleural effusion, or focal pneumonia. Heart size normal and no overt failure. Osseous structures demonstrate hypertrophic and degenerative changes of the spine. Diffuse hyperinflation. Diffuse osteopenia with AC joint arthropathy. Atherosclerotic hebert ge aorta. Subsegmental changes at the left lung base. There is a fracture of the distal right IMPRESSION: 1. COPD. Favor basilar atelectasis over pneumonia correlate.. 2. Mildly displaced fracture distal right clavicle.
--- NOTE | 2023-07-28 09:03 | XR ---
EXAMINATION TYPE: XR shoulder complete RT DATE OF EXAM: 07/28/2023 COMPARISON: NONE HISTORY: Pain TECHNIQUE: Three views are submitted. FINDINGS: Mildly displaced fracture distal right clavicle. Hypertrophic changes AC joint. Diffuse osteopenia. G lenohumeral joint demonstrates mild narrowing. No erosive changes. IMPRESSION: 1. Mildly displaced fracture distal right clavicle
--- NOTE | 2023-07-28 09:06 | XR ---
EXAMINATION TYPE: XR Hip Complete RT DATE OF EXAM: 07/28/2023 COMPARISON: NONE HISTORY: Pain TECHNIQUE: 2 views submitted FINDINGS: There is moderate diffuse osteopenia with mild facet arthropathy. SI joint maintained. Vascular calci fications in the pelvis. IMPRESSION: 1. Linear lucency along the greater trochanter most likely related to soft tissue artifact. Would rec ommended CT scan if there is high clinical concern for fracture or difficulty with weightbearing.
== END 2023-07-28 09:12 | disposition other institution (70) ==
LOC: EC 07:08
DX: S42.031A Displaced fracture of lateral end of right clavicle, initial encounter for closed fracture (principal); S06.5XAA Traumatic subdural hemorrhage with loss of consciousness status unknown, initial encounter; I10 Essential (primary) hypertension; J44.9 Chronic obstructive pulmonary disease, unspecified; F41.9 Anxiety disorder, unspecified; E78.5 Hyperlipidemia, unspecified; F32.A Depression, unspecified; Z79.82 Long term (current) use of aspirin; Z79.899 Other long term (current) drug therapy; Z88.8 Allergy status to other drugs, medicaments and biological substances; W18.30XA Fall on same level, unspecified, initial encounter
CPT/HCPCS: 36415; 93005; 80053; 84484; 85025; 85610; 85730; 73502; 73030; 71046; 72125; 70450; 99285; 96374; 96372; 96361; J2270

== ENCOUNTER → 2023-11-12 | Outpatient (CLI) | payer MEDICARE ==
--- NOTE | 2023-11-12 16:33 | US ---
EXAMINATION TYPE: US venous doppler duplex LE BI DATE OF EXAM: 11/12/2023 4:17 PM COMPARISON: NONE CLINICAL INDICATION: Female, 83 years old with history of R60.0 LOCALIZED EDEMA; No hx of DVT. Kiana ivey since August. SIDE PERFORMED: Bilateral TECHNIQUE: The lower extremity deep venous system is examined utilizing real time linear array sonog yandy with graded compression, doppler sonography and color-flow sonography. VESSELS IMAGED: Common Femoral Vein Deep Femoral Vein Greater Saphenous Vein * Femoral Vein Popliteal Vein Small Saphenous Vein * Proximal Calf Veins (* superficial vessels) Right Leg: No evidence of DVT Left Leg: No evidence of DVT IMPRESSION:
== END | disposition home or self-care (01) ==
LOC: RADUSWWP 15:46
PROVIDERS: ATTEND Family Medicine
DX: R60.0 Localized edema (principal); M79.89 Other specified soft tissue disorders
CPT/HCPCS: 93970

== ENCOUNTER → 2023-12-15 | Outpatient (CLI) | payer MEDICARE ==
--- NOTE | 2023-12-15 16:05 | MM ---
Reason for Exam: Screening (asymptomatic). Last mammogram was performed 1 year(s) and 5 month(s) ago. Patient History: Menarche at age 10. First Full-Term at age 29. Late child-bearing (after 30). Postmenopausal. Sister had breast cancer, age 60. Risk Values: Park 5 year model risk: 2.6%. NCI Lifetime model risk: 2.6%. Prior Study Comparison: 07/03/2021 Bilateral Screening Mammogram, [facility]. 07/11/2022 Bilateral MG 3D screening mammo w/cad, [facility]. 07/16/2022 Right MG 3D work up w/cad RT, [facility]. Tissue Density: There are scattered fibroglandular densities. Findings: Analyzed By CAD. The pattern is symmetrical. Multiple benign linear calcifications are present bilaterally. No suspicious groups of microcalcifications, spiculated or lobular masses, architectural distortion or other secondary signs of malignancy are mammographically apparent. Overall Assessment: Benign, BI-RAD 2 Management: Screening Mammogram of both breasts in 1 year. A negative mammogram report should not preclude additional follow up of suspicious palpable abnormalities. Patient should continue monthly self breast exam. A clinical breast exam by your physician is recommended on an annual basis and results should be correlated with mammographic findings. Electronically signed and approved by: Jean Claude Chavez D.O. Radiologis
== END | disposition home or self-care (01) ==
LOC: RADMAMWWP 12:37
PROVIDERS: ATTEND Family Medicine
DX: Z12.31 Encounter for screening mammogram for malignant neoplasm of breast (principal); Z78.0 Asymptomatic menopausal state; Z80.3 Family history of malignant neoplasm of breast
CPT/HCPCS: 77063; 77067

== ENCOUNTER 2024-05-25 20:34 | Inpatient (IN) | payer MEDICARE ==
[~2024-05-25 20:34] MED LIST: SODIUM CHLORIDE 0.9% 50 ML BAG ONE
[2024-05-25] MEDS ORDERED: cefTRIAXone IN SWFI 1,000 MG/10 ML SYRINGE IVP ONE (21:31)
[2024-05-26] MEDS ORDERED: MORPHINE SULFATE 4 MG/ML SYRINGE ONE
[2024-05-26] MEDS ORDERED: ONDANSETRON 4 MG/2 ML VIAL ONE (00:06)
[2024-05-26] MEDS ORDERED: ASPIRIN 81 MG ONE (09:42)
[2024-05-26] MEDS ORDERED: METOPROLOL TARTRATE 25 MG TAB ONE ×2 (09:42→21:50)
[2024-05-26] MEDS ORDERED: lisinopriL 10 MG TAB ONE (09:43)
[2024-05-26] MEDS ORDERED: cefTRIAXone IN SWFI 1,000 MG/10 ML SYRINGE IVP ONE (09:43)
[2024-05-26] MEDS ORDERED: ATORVASTATIN 40 MG TAB ONE (21:50)
[2024-05-26] MEDS ORDERED: HEPARIN SODIUM,PORCINE 5,000 UNIT/ML 1 ML VIAL ONE (21:50)
[2024-05-27] MEDS ORDERED: HEPARIN SODIUM,PORCINE 5,000 UNIT/ML 1 ML VIAL ONE (06:12)
[2024-05-27] MEDS ORDERED: lisinopriL 10 MG TAB ONE ×2 (08:56→23:18)
[2024-05-27] MEDS ORDERED: ASPIRIN 81 MG ONE (08:56)
[2024-05-27] MEDS ORDERED: METOPROLOL TARTRATE 25 MG TAB ONE ×3 (08:56→23:18)
[2024-05-27] MEDS ORDERED: cefTRIAXone 2 GM VIAL ONE (08:57)
[2024-05-27] MEDS ORDERED: ATORVASTATIN 40 MG TAB ONE (20:01)
[2024-05-28] MEDS ORDERED: ONDANSETRON 4 MG/2 ML VIAL ONE (00:41)
[2024-05-28] MEDS ORDERED: SODIUM CHLORIDE 0.9% 50 ML BAG ONE (09:00)
[2024-05-28] MEDS ORDERED: METOPROLOL TARTRATE 50 MG TAB ONE ×2 (09:49→19:38)
[2024-05-28] MEDS ORDERED: ASPIRIN 81 MG ONE (09:49)
[2024-05-28] MEDS ORDERED: lisinopriL 10 MG TAB ONE ×2 (09:49→19:38)
[2024-05-28] MEDS ORDERED: cefTRIAXone 2 GM VIAL ONE (09:50)
[2024-05-28] MEDS ORDERED: ONDANSETRON ODT 4 MG TAB ONE (10:11)
[2024-05-28] MEDS ORDERED: HEPARIN SODIUM,PORCINE 5,000 UNIT/ML 1 ML VIAL ONE (12:58)
[2024-05-28] MEDS ORDERED: hydroCHLOROthiazide 25 MG TAB ONE (19:38)
[2024-05-28] MEDS ORDERED: ATORVASTATIN 40 MG TAB ONE (19:40)
[2024-05-29] MEDS ORDERED: lisinopriL 10 MG TAB ONE ×2 (07:47→20:14)
[2024-05-29] MEDS ORDERED: ASPIRIN 81 MG ONE (07:47)
[2024-05-29] MEDS ORDERED: METOPROLOL TARTRATE 50 MG TAB ONE ×2 (07:47→20:13)
[2024-05-29] MEDS ORDERED: hydroCHLOROthiazide 25 MG TAB ONE (07:48)
[2024-05-29] MEDS ORDERED: HEPARIN SODIUM,PORCINE 5,000 UNIT/ML 1 ML VIAL ONE ×2 (13:15→20:14)
[2024-05-29] MEDS ORDERED: ATORVASTATIN 40 MG TAB ONE (20:14)
[2024-05-30] MEDS ORDERED: SODIUM CHLORIDE 0.9% 1,000 ML BAG ONE (06:00)
[2024-05-30] MEDS ORDERED: lisinopriL 10 MG TAB ONE ×2 (07:31→11:21)
[2024-05-30] MEDS ORDERED: hydroCHLOROthiazide 25 MG TAB ONE (07:31)
[2024-05-30] MEDS ORDERED: ASPIRIN 81 MG ONE (07:31)
[2024-05-30] MEDS ORDERED: METOPROLOL TARTRATE 50 MG TAB ONE ×2 (07:31→20:25)
[2024-05-30] MEDS ORDERED: ONDANSETRON 4 MG/2 ML VIAL ONE (09:37)
[2024-05-30] MEDS ORDERED: lisinopriL 20 MG TAB ONE (20:25)
[2024-05-30] MEDS ORDERED: ATORVASTATIN 40 MG TAB ONE (20:26)
[2024-05-30] MEDS ORDERED: HEPARIN SODIUM,PORCINE 5,000 UNIT/ML 1 ML VIAL ONE (20:26)
[2024-05-31] MEDS ORDERED: ASPIRIN 81 MG ONE (08:37)
[2024-05-31] MEDS ORDERED: lisinopriL 20 MG TAB ONE (08:37)
[2024-05-31] MEDS ORDERED: METOPROLOL TARTRATE 50 MG TAB ONE (08:37)
[2024-05-31] MEDS ORDERED: HEPARIN SODIUM,PORCINE 5,000 UNIT/ML 1 ML VIAL ONE (08:38)
[2024-05-31] MEDS ORDERED: hydroCHLOROthiazide 25 MG TAB ONE (08:38)
--- NOTE | 2024-06-15 09:19 | CT ---
[facility] CORTEZ : 38 CT Head and cervical spine without contrast Study Date: 05/25/2024 5:42 PM Comparison: No priors available during downtime Clinical History: 83-year-old female pain after fall on thinners, Technique: Automated exposure control for dose reduction was used. Examination of the head was done in axial plane without intravenous contrast. Coronal reconstruction performed. CT of the cervical spine was obtained in axial plane without intravenous injection of contrast mater ial. Coronal and sagittal reformatted images were obtained from the axial views for evaluation of fr actures, spinal alignment, and canal. FINDINGS: HEAD: There is no evidence of acute intracranial hemorrhage, acute ischemic changes, mass, mass-effect, mi dline shift, or extra-axial fluid collection. There is no hydrocephalus. There is no effacement of cerebral sulci or basal subarachnoid cisterns. Victor-white matter distinction is preserved. Mild volume loss overlying the bilateral cerebral convexities. Atherosclerotic calcifications in the carotid siphons. Moderate white matter hypodensities in both cerebral hemispheres. Rightward nasal septal deviation. Paranasal sinuses and mastoid air cells well pneumatized. Orbits an d globes are intact. CERVICAL SPINE: No craniocervical junction abnormality, predental space widening, or prevertebral soft tissue swellin g. Scattered moderate facet/uncovertebral joint degenerative change as well as degenerative disc disease . By CT, no evident canal compromise though small disc osteophyte complexes are present. Alignment is maintained. No acute fracture seen. Degenerative change at the bilateral TMJs. Moderate right neuroforaminal stenosis at C4-C5. Mild at various additional levels throughout the cer vical spine. Sagittal and coronal reformatted images confirm above findings. COMBINED IMPRESSION: 1. Moderate burden of chronic small vessel ischemic disease. No acute intracranial abnormality seen. 2. No acute fracture or malalignment of the cervical spine. Mild to moderate multilevel spondylotic c hange. Dictated by: Dr. Lj Parks
--- NOTE | 2024-07-06 08:57 | XR ---
EXAMINATION TYPE: XR chest 1V DATE OF EXAM: 05/25/2024 COMPARISON: Chest radiographs from 07/28/2023 TECHNIQUE: XR chest 1V Frontal view of the chest. CLINICAL INDICATION:Female, 83 years old with history of FALL; FINDINGS: Lungs/Pleura: There is flattening of the diaphragm with increased lucency of the lungs. No evidence o f pneumothorax, pleural effusion or focal consolidation. Pulmonary vascularity: Unremarkable. Heart/mediastinum: Cardiomediastinal silhouette is unremarkable. Atherosclerotic calcifications are seen in the aorta. Musculoskeletal: No acute osseous pathology. Remote distal right clavicular fracture. IMPRESSION: No acute cardiopulmonary disease/process. [facility], , 07/06/2024 8:55 AM
--- NOTE | 2024-07-06 09:01 | XR ---
EXAMINATION TYPE: XR pelvis AP view DATE OF EXAM: 05/25/2024 INDICATION: Patient age:Female; 83 years old; Reason for study: FALL; PHH. COMPARISON: Right hip radiograph 07/28/2023 TECHNIQUE: The pelvis was examined in a single projection. FINDINGS: There is no evidence of fracture or dislocation. Osteoarthritic changes of both hips with m edial joint space narrowing and marginal spurring. Post surgical changes from left femoral fixation h ardware. There is no soft tissue abnormality. Pelvic phleboliths are present. Rectal fecaloma measur ing up to 6.8 cm in diameter. Multilevel degenerative changes of the lower spine. Vascular sclerosis . Linear radiopaque density overlying the right hip soft tissues. Likely external. IMPRESSION: 1. No acute osseous pathology. 2. [id number] osteoarthritic changes of both hips. 3. Post surgical changes from left proximal femoral fixation. [facility], , 07/06/2024 8:59 AM
--- NOTE | 2024-07-20 13:37 | US ---
[id number] Elvira Card ID [id number] DOB1 EXAMINATION TYPE: US carotid duplex BILAT DATE OF EXAM: 05/31/2024 COMPARISON: NONE CLINICAL INDICATION: Fall, TIA Tech Impression: No elevated velocities. No significant stenosis. TECHNIQUE: Carotid duplex ultrasound examination. Indirect Doppler criteria was utilized. FINDINGS: EXAM MEASUREMENTS: RIGHT: Peak Systolic Velocity (PSV) cm/sec ----- Right CCA: 64.1 ----- Right ICA: 66.2 ----- Right ECA: 55.1 ICA/CCA ratio: 1.01 LEFT: Peak Systolic Velocity (PSV) cm/sec ----- Left CCA: 80.7 ----- Left ICA: 65.8 ----- Left ECA: 48.0 ICA/CCA ratio: 1.35 VERTEBRALS (direction of flow): Right Vertebral: Antegrade Left Vertebral: Antegrade Rhythm: Normal IMPRESSION: Less than 50% stenosis of the bilateral carotid bifurcations. Criteria for Assigning % of Stenosis / Diameter reduction (Estimation based on the indirect measurements of the internal carotid artery velocities (ICA PSV). 1. Normal (no stenosis)=ICA PSV < 125 cm/s: ratio < 2.0: ICA EDV<40 cm/s. 2. Less than 50% stenosis=ICA PSV < 125 cm/s: ratio < 2.0: ICA EDV<40 cm/s. 3. 50 to 69% stenosis=ICA PSV of 125 to 230 cm/s: ration 2.0 ? 4.0: ICA EDV 40-100 cm/s. 4. Greater than 70% stenosis to near occlusion= ICA PSV > 230 cm/s: ratio > 4.0: ICA EDV > 100 cm/s. 5. Near occlusion= ICA PSV velocities may be low or undetectable: variable ratio and ICA EDV. 6. Total occlusion=unable to detect flow.
== END 2024-05-31 14:25 | disposition home or self-care (01) | DRG 312 ==
LOC: DISRECOVER 20:34
PROVIDERS: ADMIT Hospitalist; ATTEND Hospitalist
DX: I95.1 Orthostatic hypotension (principal); R41.82 Altered mental status, unspecified; R47.81 Slurred speech; J44.9 Chronic obstructive pulmonary disease, unspecified; I10 Essential (primary) hypertension; R56.9 Unspecified convulsions; R79.89 Other specified abnormal findings of blood chemistry; W19.XXXA Unspecified fall, initial encounter; Z79.01 Long term (current) use of anticoagulants; Z79.02 Long term (current) use of antithrombotics/antiplatelets; Z79.899 Other long term (current) drug therapy; Z86.73 Personal history of transient ischemic attack (TIA), and cerebral infarction without residual deficits
CPT/HCPCS: 70450; 71045; 72125; 72170; 80048; 80053; 81003; 83735; 84100; 84484; 85025; 85610; 85730; 93306; 93880; 96360; 99285

== ENCOUNTER 2025-01-30 08:02 | Inpatient (IN) | payer MEDICARE ==
[2025-01-30 08:07] LABS: Glucose,Whole Blood 134 mg/dL (70-110)
--- NOTE | 2025-01-30 08:18 | CT ---
EXAMINATION TYPE: CODE STROKE: CT brain wo contr DATE OF EXAM: 01/30/2025 8:13 AM COMPARISON: 05/25/2024 CLINICAL INDICATION: Female, 84 years old with history of Neuro deficit, acute, stroke suspected, COD E STROKE TECHNIQUE: CT of the brain is performed utilizing 3 mm thick sections through the posterior fossa and 3 mm thick sections through the remaining calvarium. Study is performed within 24 hours of arrival to the hospital. Contrast used: mL of , (none if empty) CT DLP: 1102.2 mGycm, Automated exposure control for dose reduction was used. FINDINGS: No abnormal hyperdensity is present to suggest an acute intracranial hemorrhage. No mass lesion is evident. No acute infarcts are evident. Periventricular white matter hypodensity is present, likely on the bas is of chronic white matter ischemic changes findings appear stable from comparison Ventricles and sulci are appropriate for the patient age. Paranasal sinuses and mastoid air cells within the [id number] are clear. IMPRESSION: 1. No acute intracranial process. Follow up MRI can be performed as clinically indicated. 2. Chronic appearing periventricular white matter ischemic type changes, stable from comparison [facility], , 01/30/2025 8:15 AM
[2025-01-30] MEDS: SODIUM CHLORIDE 0.9% 1,000 ML IV ONE (08:33)
[2025-01-30 08:42] LABS: Basophils # (A) 0.07 10*3/uL (0.00-0.10); Basophils % (A) 0.9 %; Eosinophils % (A) 1.3 %; HCT 42.5 % (37.2-46.3); HGB 13.6 g/dL (12.0-15.0); Lymphocytes # (A) 1.68 10*3/uL (0.90-5.00); Lymphocytes % (A) 21.2 %; MCH 28.5 pg (27.0-32.0); MCV 88.9 fL (80.0-97.0); Mean Platelet Volume 9.8 fL (9.5-12.2); Monocytes % (A) 10.1 %; Neutrophils # (A) 5.27 10*3/uL (1.80-7.70); Neutrophils % (A) 66.2 %; Platelet Count 258 10*3/uL (140-440); RBC 4.78 10*6/uL (4.10-5.20); RDW 14.6 % (11.5-14.5); WBC 7.94 10*3/uL (4.50-10.00)
[2025-01-30 08:56] LABS: Prothrombin Time 10.9 sec (10.0-12.5)
--- NOTE | 2025-01-30 09:01 | ED ---
General Adult HPI - General Chief complaint: Altered Mental Status Stated complaint: stroke like symptoms Time Seen by Provider: 01/30/25 08:03 Source: patient, EMS, RN notes reviewed, old records reviewed Mode of arrival: EMS Limitations: altered mental status - History of Present Illness Initial comments: 84-year-old female woke with speech abnormality and confusion. Patient went to bed at 11:30 PM last night. She woke with symptoms. Patient was transported by paramedics, stroke activation prior to arrival. Patient is denying pain complaints. She is able to answer simple questions and can articulate her name but does have both expressive aphasia and dysarthria upon arrival. There was no preceding symptoms. Patient is reported to be on Plavix. - Related Data Home Medications Medication Instructions Recorded Confirmed Calcium Citrate 1 dose PO DAILY 01/30/25 01/30/25 Metoprolol Tartrate [Lopressor] 25 mg PO BID 01/30/25 01/30/25 levETIRAcetam [Keppra] 500 mg PO Q12HR 01/30/25 01/30/25 lisinopriL [Zestril] 20 mg PO DAILY 01/30/25 01/30/25 Previous Rx's Medication Instructions Recorded Aspirin 81 mg PO DAILY tab 01/06/23 Atorvastatin [Lipitor] 40 mg PO HS #30 tablet 01/06/23 Clopidogrel [Plavix] 75 mg PO DAILY #30 tab 01/06/23 Allergies Allergy/AdvReac Type Severity Reaction Status Date / Time citalopram hydrobromide AdvReac "It Verified 01/30/25 09:01 [From Celexa] drugged me too much" Review of Systems ROS Statement: Those systems with pertinent positive or pertinent negative responses have been documented in the HPI. ROS Other: All systems not noted in ROS Statement are negative. Past Medical History Past Medical History: Asthma, COPD, CVA/TIA, Hyperlipidemia, Hypertension Additional Past Medical History / Comment(s): pain-shingles abdomen rt side and back, inner ear issue with occasional dizziness History of Any Multi-Drug Resistant Organisms: None Reported Past Surgical History: Orthopedic Surgery Additional Past Surgical History / Comment(s): scar tissue removal from neck. d&c , left hip surgery Past Anesthesia/Blood Transfusion Reactions: No Reported Reaction Past Psychological History: Anxiety, Depression Smoking Status: Never smoker Past Alcohol Use History: None Reported Past Drug Use History: None Reported - Past Family History Mother Family Medical History: CVA/TIA Father Family Medical History: Myocardial Infarction (SD) General Exam Limitations: altered mental status General appearance: alert, in no apparent distress Head exam: Present: atraumatic, normocephalic Eye exam: Present: normal appearance, PERRL ENT exam: Present: normal exam Neck exam: Present: normal inspection. Absent: tenderness, meningismus Respiratory exam: Present: normal lung sounds bilaterally. Absent: respiratory distress, wheezes Cardiovascular Exam: Present: regular rate, normal rhythm GI/Abdominal exam: Present: soft. Absent: distended, tenderness, guarding Extremities exam: Present: normal inspection, normal capillary refill Neurological exam: Present: alert, motor sensory deficit (NIH of 8 secondary expressive aphasia, dysarthria, confusion, right-sided facial droop and ataxia.) Psychiatric exam: Present: anxious Skin exam: Present: warm, dry, intact. Absent: cyanosis, diaphoretic Course Vital Signs 01/30/25 01/30/25 01/30/25 08:23 08:49 09:04 Temperature 96.8 F L Pulse Rate 76 75 76 Respiratory 20 20 20 Rate Blood Pressure 190/111 185/95 192/84 O2 Sat by Pulse 95 95 94 L Oximetry - Reevaluation(s) Reevaluation #1: 01/30/25 0807 Discussed the case with Dr. Tiana sutton for stroke, recommends medical management given the onset of symptoms. Medical Decision Making - Medical Decision Making Was pt. sent in by a medical professional or institution (, PA, DOOR OPERATOR, urgent care, hospital, or [place] health care facility...) When possible be specific @ -No Did you speak to anyone other than the patient for history (EMS, parent, family, police, friend...)? What history was obtained from this source @ -No Did you review nursing and triage notes (agree or disagree)? Why? @ -I reviewed and agree with nursing and triage notes Were old charts reviewed (outside hosp., previous admission, EMS record, old EKG, old radiological studies, urgent care reports/EKG's, [place] health care facility records)? Report findings @ -No old charts were reviewed Differential CVA Ischemic stroke, hemorrhagic stroke, brain tumor, atypical migraine, Wernicke's encephalopathy, seizure, multiple sclerosis, meningitis, encephalitis, hypoglycemia, Guillain-Fields, electrolytes disturbance, myasthenia gravis.... This is not meant to be an all-inclusive list EKG interpreted by me (3pts min.). @ -Sinus rhythm poor baseline secondary to tremor artifact, ventricular rate 76, SD interval 223, QRS duration 129 QTc 483 X-rays interpreted by me (1pt min.). @ -Chest x-ray showing left-sided pleural effusion, no pneumothorax. CT interpreted by me (1pt min.). @ -None done U/S interpreted by me (1pt. min.). @ -None done What testing was considered but not performed or refused? (CT, X-rays, U/S, labs)? Why? @ -None What meds were considered but not given or refused? Why? @ -None Did you discuss the management of the patient with other professionals (professionals i.e. , PA, DOOR OPERATOR, lab, RT, psych nurse, social worker health services, payroll consultant, teacher, county records management officer, vocational case manager)? Give summary @ -Dr. Montiel, recommends medical management not a thrombolytic or thrombectomy candidate due to symptom onset and low NIH. The risks outweigh the benefits. Case discussed with [facility], will admit Was smoking cessation discussed for >3mins.? @ -No Was critical care preformed (if so, how long)? @Yes, 35 minutes Were there social determinants of health that impacted care today? How? (Homele ssness, low income, unemployed, alcoholism, drug addiction, transportation, low edu. Level, literacy, decrease access to med. care, intermediate, rehab)? @ -No Was there de-escalation of care discussed even if they declined (Discuss DNR or withdrawal of care, Hospice)? DNR status @ -No What co-morbidities impacted this encounter? (DM, HTN, Smoking, COPD, CAD, Cancer, CVA, ARF, Chemo, Hep., AIDS, mental health diagnosis, sleep apnea, morbid obesity)? @ -[Previous CVA TIA Was patient admitted / discharged? Hospital course, mention meds given and route, prescriptions, significant lab abnormalities, going to OR and other pertinent info. @84-year-old female presenting with confusion, slurred speech and expressive aphasia. Patient is a stroke activation. Patient woke with symptoms and went to bed at approximately 1130. Due to onset patient is not a thrombolytic candidate and due to low NIH and negative CTA she is not a candidate for thrombectomy. The stroke interventionalists does recommend both aspirin and Brilinta which are administered in the emergency department. Patient admitted to internal medicine with neurology on consult. Undiagnosed new problem with uncertain prognosis? @ -No Drug Therapy requiring intensive monitoring for toxicity (Heparin, Nitro, Insulin, Cardizem)? @ -No Were any procedures done? @ -No Diagnosis/symptom? @ -CVA Acute, or Chronic, or Acute on Chronic? @ -Acute Uncomplicated (without systemic symptoms) or Complicated (systemic symptoms)? @ -Default Side effects of treatment? @ -No Exacerbation, Progression, or Severe Exacerbation? @ -No Poses a threat to life or bodily function? How? (Chest pain, USA, SD, pneumonia, PE, COPD, DKA, ARF, appy, cholecystitis, CVA, Diverticulitis, Homicidal, Suicidal, threat to staff... and all critical care pts) @ -[Yes, CVA - Lab Data Result diagrams: 01/30/25 08:35 01/30/25 08:35 Lab Results 01/30/25 01/30/25 01/30/25 Range/Units 08:06 08:35 08:35 WBC 7.94 (4.50-10.00) 10*3/uL RBC 4.78 (4.10-5.20) 10*6/uL Hgb 13.6 (12.0-15.0) g/dL Hct 42.5 (37.2-46.3) % MCV 88.9 (80.0-97.0) fL MCH 28.5 (27.0-32.0) pg MCHC 32.0 (32.0-37.0) g/dL Plt Count 258 (140-440) 10*3/uL MPV 9.8 (9.5-12.2) fL Immature Gran % (Auto) 0.3 % Neutrophils % 66.2 % Lymphocytes % 21.2 % Monocytes % 10.1 % Eosinophils % 1.3 % Basophils % 0.9 % Immature Gran # 0.02 (0.00-0.04) 10*3/uL Neutrophils # 5.27 (1.80-7.70) 10*3/uL Lymphocytes # 1.68 (0.90-5.00) 10*3/uL Monocytes # 0.80 (0.20-1.00) 10*3/uL Eosinophils # 0.10 (0.04-0.35) 10*3/uL Basophils # 0.07 (0.00-0.10) 10*3/uL PT 10.9 (10.0-12.5) sec INR 1.0 (<1.2) APTT 21.8 L (22.0-30.0) sec Sodium (137-145) mmol/L Potassium (3.5-5.1) mmol/L Chloride (98-107) mmol/L Carbon Dioxide (22-30) mmol/L Anion Gap mmol/L BUN (7-17) mg/dL Creatinine (0.52-1.04) mg/dL Est GFR (CKD-EPI)AfAm (>60 ml/min/1.73 sqM) Est GFR (CKD-EPI)NonAf (>60 ml/min/1.73 sqM) Glucose (74-99) mg/dL POC Glucose (mg/dL) 134 H (70-110) mg/dL POC Glu [employer] ID [facility] Calcium (8.4-10.2) mg/dL Total Bilirubin (0.2-1.3) mg/dL AST (14-36) U/L ALT (4-34) U/L Alkaline Phosphatase (38-126) U/L Creatine Kinase (30-135) U/L Total Protein (6.3-8.2) g/dL Albumin (3.5-5.0) g/dL Urine Color Urine Appearance (Clear) Urine pH (5.0-8.0) Ur Specific [place] (1.001-1.035) Urine Protein (Negative) Urine Glucose (UA) (Negative) Urine Ketones (Negative) Urine Blood (Negative) Urine Nitrite (Negative) Urine Bilirubin (Negative) Urine Urobilinogen (<2.0) mg/dL Ur Leukocyte Esterase (Negative) 01/30/25 01/30/25 Range/Units 08:35 08:35 WBC (4.50-10.00) 10*3/uL RBC (4.10-5.20) 10*6/uL Hgb (12.0-15.0) g/dL Hct (37.2-46.3) % MCV (80.0-97.0) fL MCH (27.0-32.0) pg MCHC (32.0-37.0) g/dL Plt Count (140-440) 10*3/uL MPV (9.5-12.2) fL Immature Gran % (Auto) % Neutrophils % % Lymphocytes % % Monocytes % % Eosinophils % % Basophils % % Immature Gran # (0.00-0.04) 10*3/uL Neutrophils # (1.80-7.70) 10*3/uL Lymphocytes # (0.90-5.00) 10*3/uL Monocytes # (0.20-1.00) 10*3/uL Eosinophils # (0.04-0.35) 10*3/uL Basophils # (0.00-0.10) 10*3/uL PT (10.0-12.5) sec INR (<1.2) APTT (22.0-30.0) sec Sodium 136 L (137-145) mmol/L Potassium 4.2 (3.5-5.1) mmol/L Chloride 101 (98-107) mmol/L Carbon Dioxide 28 (22-30) mmol/L Anion Gap 7 mmol/L BUN 22 H (7-17) mg/dL Creatinine 0.68 (0.52-1.04) mg/dL Est GFR (CKD-EPI)AfAm >90 (>60 ml/min/1.73 sqM) Est GFR (CKD-EPI)NonAf 79 (>60 ml/min/1.73 sqM) Glucose 112 H (74-99) mg/dL POC Glucose (mg/dL) (70-110) mg/dL POC Glu [employer] ID Calcium 9.1 (8.4-10.2) mg/dL Total Bilirubin 0.6 (0.2-1.3) mg/dL AST 27 (14-36) U/L ALT 15 (4-34) U/L Alkaline Phosphatase 127 H (38-126) U/L Creatine Kinase 46 (30-135) U/L Total Protein 6.4 (6.3-8.2) g/dL Albumin 3.6 (3.5-5.0) g/dL Urine Color Colorless Urine Appearance Clear (Clear) Urine pH 7.5 (5.0-8.0) Ur Specific [place] 1.024 (1.001-1.035) Urine Protein Negative (Negative) Urine Glucose (UA) Negative (Negative) Urine Ketones Negative (Negative) Urine Blood Negative (Negative) Urine Nitrite Negative (Negative) Urine Bilirubin Negative (Negative) Urine Urobilinogen <2.0 (<2.0) mg/dL Ur Leukocyte Esterase Negative (Negative) Critical Care Time Critical Care Time: Yes Total Critical Care Time: 35 Disposition Clinical Impression: Cerebrovascular accident (CVA) Disposition: ADMITTED IP TO THIS HOSP Condition: Stable Is patient prescribed a controlled substance at d/c from ED?: No Referrals: None,Stated [Primary Care Provider] - 1-2 days Time of Disposition: 09:35
[2025-01-30 09:02] LABS: ALT 15 U/L (4-34); AST 27 U/L (14-36); African American GFR (CKD) >90 (>60 ml/min/1.73 sqM); Albumin 3.6 g/dL (3.5-5.0); Alkaline Phosphatase 127 U/L (38-126); Anion Gap 7 mmol/L; Blood Urea Nitrogen 22 mg/dL (7-17); Calcium 9.1 mg/dL (8.4-10.2); Carbon Dioxide 28 mmol/L (22-30); Chloride 101 mmol/L (98-107); Creatine Kinase 46 U/L (30-135); Glucose 112 mg/dL (74-99); Non-African American GFR(CKD) 79 (>60 ml/min/1.73 sqM); Partial Thromboplastin Time 21.8 sec (22.0-30.0); Potassium 4.2 mmol/L (3.5-5.1); Sodium 136 mmol/L (137-145); Total Bilirubin 0.6 mg/dL (0.2-1.3); Total Protein 6.4 g/dL (6.3-8.2)
[2025-01-30] MEDS: TICAGRELOR 90 MG TAB PO STA (09:21)
[2025-01-30] MEDS: ASPIRIN 325 MG TAB PO STA (09:22)
--- NOTE | 2025-01-30 09:23 | CT ---
EXAMINATION TYPE: CT angio head neck DATE OF EXAM: 01/30/2025 8:30 AM COMPARISON: None. CLINICAL INDICATION: Female, 84 years old with history of Neuro deficit, acute, stroke suspected, TECHNIQUE: CTA scan is performed with axial images are obtained, coronal and sagittal reformatted randolph ges are reviewed. MIP images created on a separate workstation and submitted for review. 3-D reconstr ucted images are created on an independent workstation and reviewed. Source images are reviewed. FAUSTINA CET criteria was used in interpretation of this exam? Contrast used:65 mL of Isovue 370 , (none if empty) Oral contrast used: (none if empty) CT DLP: 349.5 mGycm, Automated exposure control for dose reduction was used. FINDINGS: Carotid/Vascular Structures: There is a 3 vessel arch. Common carotid arteries bifurcate into internal and external carotid arteries without significant fifi w limiting stenosis. Very minimal calcification is noted at the carotid bifurcations Vertebral arteries are codominant. Internal carotid arteries and vertebral arteries are patent to the skull base. Cervical of [place]: Vertebral basilar system appears normal. Posterior cerebral vasculature is unrema rkable. Internal carotid arteries bifurcate normally into A1 and M1 segments. A2 segments are normal. The anterior communicating artery is patent. The right posterior communicating artery is patent. The left posterior communicating artery is patent. IMPRESSION: 1. No flow-limiting stenosis bilateral carotid bifurcations. 2. Normal [place] [facility], , 01/30/2025 9:21 AM
--- NOTE | 2025-01-30 09:24 | XR ---
EXAMINATION TYPE: XR chest 1V portable DATE OF EXAM: 01/30/2025 8:47 AM COMPARISON: [id number] CLINICAL INDICATION: Female, 84 years old with history of altered mental status, TECHNIQUE: XR chest 1V portable view(s) obtained. FINDINGS: The heart size is normal. The pulmonary vasculature is normal. Small left pleural effusion may be present IMPRESSION: 1. Small left pleural effusion [facility], , 01/30/2025 9:22 AM
[2025-01-30 09:31] LABS: Appearance,Urine Clear (Clear); Bilirubin,Urine Negative (Negative); Blood,Urine Negative (Negative); Color,Urine Colorless; Glucose,Urine (UA) Negative (Negative); Ketones,Urine Negative (Negative); Leukocyte Esterase,Urine Negative (Negative); Nitrite,Urine Negative (Negative); PH, Urine 7.5 (5.0-8.0); Protein,Urine Negative (Negative); Specific Gravity,Urine 1.024 (1.001-1.035); Urobilinogen,Urine <2.0 mg/dL (<2.0)
[2025-01-30] MEDS ORDERED: QUEtiapine 25 MG TAB PO PRN (11:14)
--- NOTE | 2025-01-30 11:17 | P.HPIM ---
History of Present Illness -year-old M with irregular complains of confusion and unable to speak patient appears to have more aphasia and also right-sided facial droop patient does not appear to have any other focal weakness but patient is not following commands to do basic neuroexam. Patient had any history of atrial fibrillation patient had a history of intracranial hemorrhage in the past unknown whether it is spontaneous or traumatic bleed and patient also has TIAs in the past patient is on aspirin Plavix at home. CT of the head showed some chronic periventricular white matter changes REVIEW OF SYSTEMS: All other systems are negative except those mentioned in the HPI PHYSICAL EXAMINATION: GENERAL: The patient is alert and oriented x3, not in any acute distress. Well developed, well nourished. HEENT: Pupils are round and equally reacting to light. EOMI. No scleral icterus. No conjunctival pallor. Normocephalic, atraumatic. No pharyngeal erythema. No thyromegaly. CARDIOVASCULAR: S1 and S2 present. No murmurs, rubs, or gallops. PULMONARY: Chest is clear to auscultation, no wheezing or crackles. ABDOMEN: Soft, nontender, nondistended, normoactive bowel sounds. No palpable organomegaly. MUSCULOSKELETAL: No joint swelling or deformity. EXTREMITIES: No cyanosis, clubbing, or pedal edema. NEUROLOGICAL: Moderate aphasia confusion Limited exam as patient does not follow commands well. SKIN: No rashes. Assessment and plan -Cerebrovascular accident probably thromboembolic in nature, neurology consultation patient may need an MRI patient was given Brilinta and aspirin further antiplatelet management as per neurology. Lipid panel will be obtained PT and OT consultation speech therapy consultation. - Hypertension: Permissive hypertension for today and patient probably can be started on lisinopril starting tomorrow - COPD without any acute exacerbation - Hyperlipidemia - Confusion probably secondary to CVA: Seroquel as needed at nighttime if she gets agitated - Depression DVT prophylaxis: Lovenox low-dose Past Medical History Past Medical History: Asthma, COPD, CVA/TIA, Hyperlipidemia, Hypertension Additional Past Medical History / Comment(s): pain-shingles abdomen rt side and back, inner ear issue with occasional dizziness History of Any Multi-Drug Resistant Organisms: None Reported Past Surgical History: Orthopedic Surgery Additional Past Surgical History / Comment(s): scar tissue removal from neck. d&c , left hip surgery Past Anesthesia/Blood Transfusion Reactions: No Reported Reaction Past Psychological History: Anxiety, Depression Smoking Status: Never smoker Past Alcohol Use History: None Reported Past Drug Use History: None Reported - Past Family History Mother Family Medical History: CVA/TIA Father Family Medical History: Myocardial Infarction ([place]) Medications and Allergies Home Medications Medication Instructions Recorded Confirmed Type Aspirin 81 mg PO DAILY tab 01/06/23 01/30/25 Rx Atorvastatin [Lipitor] 40 mg PO HS #30 tablet 01/06/23 01/30/25 Rx Clopidogrel [Plavix] 75 mg PO DAILY #30 tab 01/06/23 01/30/25 Rx Calcium Citrate 1 dose PO DAILY 01/30/25 01/30/25 History Metoprolol Tartrate [Lopressor] 25 mg PO BID 01/30/25 01/30/25 History levETIRAcetam [Keppra] 500 mg PO Q12HR 01/30/25 01/30/25 History lisinopriL [Zestril] 20 mg PO DAILY 01/30/25 01/30/25 History Allergies Allergy/AdvReac Type Severity Reaction Status Date / Time citalopram hydrobromide AdvReac "It Verified 01/30/25 09:01 [From Celexa] drugged me too much" Physical Exam Vitals: Vital Signs Temp Pulse Resp BP Pulse Ox 01/30/25 10:31 84 20 157/100 97 01/30/25 09:04 76 20 192/84 94 L 01/30/25 08:49 75 20 185/95 95 01/30/25 08:23 96.8 F L 76 20 190/111 95 Intake and Output 01/29/25 01/30/25 01/30/25 22:59 06:59 14:59 Other: Weight 72.575 kg Results CBC & Chem 7: 01/30/25 08:35 01/30/25 08:35 Labs: Abnormal Lab Results - Last 24 Hours (Table) 01/30/25 01/30/25 01/30/25 Range/Units 08:06 08:35 08:35 APTT 21.8 L (22.0-30.0) sec Sodium 136 L (137-145) mmol/L BUN 22 H (7-17) mg/dL Glucose 112 H (74-99) mg/dL POC Glucose (mg/dL) 134 H (70-110) mg/dL Alkaline Phosphatase 127 H (38-126) U/L
--- NOTE | 2025-01-30 14:30 | US ---
EXAMINATION TYPE: US venous doppler duplex LE BI DATE OF EXAM: 01/30/2025 2:18 PM COMPARISON: NONE CLINICAL INDICATION: Female, 84 years old with history of edema, DVT; TECHNIQUE: The lower extremity deep venous system is examined utilizing real time linear array sonog yandy with graded compression, color doppler sonography, and spectral doppler. SIDE PERFORMED: Bilateral FINDINGS: VESSELS IMAGED: Common Femoral Vein Deep Femoral Vein Greater Saphenous Vein * Femoral Vein Popliteal Vein Small Saphenous Vein * Proximal Calf Veins (* superficial vessels) Difficult and limited study due to patient disoriented and moving her legs during exam Right Leg: Appears negative for DVT Left Leg: Visualized portions appear negative for DVT IMPRESSION: No ultrasound evidence for deep venous thrombosis. [facility], , 01/30/2025 2:28 PM
--- NOTE | 2025-01-30 15:15 | P.CNNES ---
History of Present Illness Consult date: 01/30/25 Reason for Consult: Stroke History of Present Illness: The patient is an 84-year-old female who is seen in neurologic consultation on January 30, 2025, in collaboration with Francoise Singh, via teleneurology. History is obtained from the patient's who is present at the bedside at the time of the evaluation. Patient's reports that the patient got up at about 6 AM. She was able to walk to the bathroom without difficulty. David nelson got up shortly thereafter. The patient was subsequently sitting in her chair when she had sudden onset of garbled speech right-sided weakness and right facial droop. The patient has a history of a previous stroke, approximately 1 year ago. Past medical history also includes hyperlipidemia, COPD and hypertension. The reports that while in the emergency department, the patient's speech has been garbled and she has been very agitated. CT scan of the brain was performed. There is no reported evidence of acute hemorrhage or infarct. The patient reportedly is taking Plavix 75 mg daily as well as Keppra 500 mg twice daily. The is unaware of the history of seizure. In the emergency department, blood pressure has been elevated. At the time of the neurology evaluation, blood pressures 206/126. Heart rate 88, O2 sat 98% on room air. Review of Systems Unable to obtain secondary to mental status of patient Past Medical History Past Medical History: Asthma, COPD, CVA/TIA, Hyperlipidemia, Hypertension Additional Past Medical History / Comment(s): pain-shingles abdomen rt side and back, inner ear issue with occasional dizziness History of Any Multi-Drug Resistant Organisms: None Reported Past Surgical History: Orthopedic Surgery Additional Past Surgical History / Comment(s): scar tissue removal from neck. d&c , left hip surgery Past Anesthesia/Blood Transfusion Reactions: No Reported Reaction Past Psychological History: Anxiety, Depression Smoking Status: Never smoker Past Alcohol Use History: None Reported Past Drug Use History: None Reported - Past Family History Mother Family Medical History: CVA/TIA Father Family Medical History: Myocardial Infarction ([place]) Medications and Allergies Home Medications Medication Instructions Recorded Confirmed Type Aspirin 81 mg PO DAILY tab 01/06/23 01/30/25 Rx Atorvastatin [Lipitor] 40 mg PO HS #30 tablet 01/06/23 01/30/25 Rx Clopidogrel [Plavix] 75 mg PO DAILY #30 tab 01/06/23 01/30/25 Rx Calcium Citrate 1 dose PO DAILY 01/30/25 01/30/25 History Metoprolol Tartrate [Lopressor] 25 mg PO BID 01/30/25 01/30/25 History levETIRAcetam [Keppra] 500 mg PO Q12HR 01/30/25 01/30/25 History lisinopriL [Zestril] 20 mg PO DAILY 01/30/25 01/30/25 History Allergies Allergy/AdvReac Type Severity Reaction Status Date / Time citalopram hydrobromide AdvReac "It Verified 01/30/25 09:01 [From Celexa] drugged me too much" Physical Examination - Vital Signs Vital Signs: Vital Signs Temp Pulse Resp BP Pulse Ox 01/30/25 09:04 76 20 192/84 94 L 01/30/25 08:49 75 20 185/95 95 01/30/25 08:23 96.8 F L 76 20 190/111 95 Intake and Output 01/29/25 01/30/25 01/30/25 22:59 06:59 14:59 Other: Weight 72.575 kg General: The patient is reclining on the [facility] in the emergency department. She is well-nourished, well-developed. She is agitated. HEENT: Head is atraumatic, normocephalic. Fundus not visualized. There is no scleral icterus. Mucous membranes are moist. Neck: Supple without carotid bruits Heart: Regular rate and rhythm Lungs: Essentially clear to auscultation Extremities: There is edema of the bilateral lower extremities. There are are cuts on the sole of her right foot. There is evidence of injury to the right, fifth toe. The patient cries out in pain when her legs are touched. Neurological examination Mental status: The patient is awake and alert. Speech is markedly slurred and nonsensical. The patient is unable to answer questions, follow commands or speak definite words. Cranial nerves: Pupils are equal, and reactive at 3 mm. There is no blink to right visual threat. There is eye contact with the examiner. The patient is able to look to the left. There is no nystagmus. There is a right facial droop. Other cranial nerves cannot be assessed as the patient does not follow commands. Motor: There is movement of the bilateral upper extremities. Formal strength testing cannot be assessed. There is no movement of the lower extremities.. Sensation: Noxious stimulation is intact in all 4 extremities. Coordination: Unable to assess at this time. Deep tendon reflexes: 3+/4+ at the bilateral brachioradialis reflexes. Lower extremity reflexes are not assessed secondary to leg pain. Plantar responses are not assessed secondary to injury to the feet. Gait: Not assessed Results CT scan of the brain images have been personally viewed. I agree with the radiology report - Laboratory Findings CBC and BMP: 01/30/25 08:35 01/30/25 08:35 Abnormal Lab Findings: Abnormal Labs 01/30/25 01/30/25 01/30/25 08:06 08:35 08:35 APTT 21.8 L Sodium 136 L BUN 22 H Glucose 112 H POC Glucose (mg/dL) 134 H Alkaline Phosphatase 127 H Assessment and Plan Assessment: 1. The patient is an 84-year-old female who has signs and symptoms on examination consistent with a left middle cerebral artery territory infarction, with global aphasia, occurring while taking aspirin and Plavix history of hypertension 2. Edema and pain of the bilateral lower extremities-possible DVT 3. History of hyperlipidemia 4. History of seizure Plan: 1. Stroke order set has been placed 2. MRI of the brain has been ordered to further evaluate for cerebral ischemia 3. Venous Doppler of the bilateral lower extremities have been ordered to assess for DVT 4. Consider changing Plavix to Brilinta 5. Continue high-dose statin 6. Speech therapy consultation 7. PT and OT consultations 8. Dr. Sanders will assume neurologic coverage of this patient as of January 31, 2025 Thank you for allowing us to participate in care of this patient Time with Patient: Greater than 30 (65 minutes were spent caring for this patient today including, obtaining history, examining the patient, reviewing imaging, chart documentation, labs, placing orders and creating this note)
[2025-01-30] MEDS: ATORVASTATIN 40 MG TAB PO SCH (22:11)
[2025-01-30] MEDS: levETIRAcetam 500 MG TAB PO SCH (22:11)
[2025-01-30] MEDS: METOPROLOL TARTRATE 25 MG TAB PO SCH (22:11)
[2025-01-30] MEDS ORDERED: ZINC OXIDE PASTE (Z-GUARD) 1 APPLIC TOPICAL PRN (22:13)
[2025-01-31 07:15] LABS: HGB 15.9 g/dL (12.0-15.0); Immature Platelet Fraction 2.9 % (1.1-6.1); MCH 29.1 pg (27.0-32.0); MCHC 33.8 g/dL (32.0-37.0); MCV 85.9 fL (80.0-97.0); Mean Platelet Volume 10.6 fL (9.5-12.2); Platelet Count 279 10*3/uL (140-440); RBC 5.47 10*6/uL (4.10-5.20); RDW 14.7 % (11.5-14.5); WBC 16.81 10*3/uL (4.50-10.00)
[2025-01-31 07:46] LABS: African American GFR (CKD) >90 (>60 ml/min/1.73 sqM); Anion Gap 13 mmol/L; Blood Urea Nitrogen 22 mg/dL (7-17); Carbon Dioxide 25 mmol/L (22-30); Chloride 97 mmol/L (98-107); Glucose 129 mg/dL (74-99); Non-African American GFR(CKD) 80 (>60 ml/min/1.73 sqM); Sodium 135 mmol/L (137-145)
[2025-01-31 07:48] LABS: Magnesium 1.9 mg/dL (1.6-2.3); Potassium 4.2 mmol/L (3.5-5.1)
[2025-01-31] MEDS: lisinopriL 20 MG TAB PO SCH (08:10)
[2025-01-31] MEDS: ASPIRIN 81 MG PO SCH (08:11)
[2025-01-31] MEDS: ENOXAPARIN 30 MG/0.3 ML SYRINGE SQ SCH (08:13)
[2025-01-31 11:00] LABS: Chol/HDL Ratio 2.39 Ratio; LDL Cholesterol,Calculated 67.8 mg/dL (0.0-131.0)
--- NOTE | 2025-01-31 11:16 | P.PN ---
Subjective -year-old M with irregular complains of confusion and unable to speak patient appears to have more aphasia and also right-sided facial droop patient does not appear to have any other focal weakness but patient is not following commands to do basic neuroexam. Patient had any history of atrial fibrillation patient had a history of intracranial hemorrhage in the past unknown whether it is spontaneous or traumatic bleed and patient also has TIAs in the past patient is on aspirin Plavix at home. CT of the head showed some chronic periventricular white matter changes 01/31/2025 Patient will undergo MRI today patient was eval by neurology they believe patient has stroke in the MCA territory. Physical therapy Occupational Therapy recommendations are still pending. Patient has leukocytosis but no clinical evidence of infection at this time chest x-ray and urinalysis were essentially within normal notes yesterday patient denied any UTI symptoms patient denied any cough at this time no abdominal pain or diarrhea will monitor without any antibiotics. PHYSICAL EXAMINATION: GENERAL: The patient is alert and oriented x3, not in any acute distress. Well developed, well nourished. HEENT: Pupils are round and equally reacting to light. EOMI. No scleral icterus. No conjunctival pallor. Normocephalic, atraumatic. No pharyngeal erythema. No thyromegaly. CARDIOVASCULAR: S1 and S2 present. No murmurs, rubs, or gallops. PULMONARY: Chest is clear to auscultation, no wheezing or crackles. ABDOMEN: Soft, nontender, nondistended, normoactive bowel sounds. No palpable organomegaly. MUSCULOSKELETAL: No joint swelling or deformity. EXTREMITIES: No cyanosis, clubbing, or pedal edema. NEUROLOGICAL: Moderate aphasia confusion Limited exam as patient does not follow commands well. SKIN: No rashes. Assessment and plan -Cerebrovascular accident probably thromboembolic in nature, neurology consultation pending MRI,-leukocytosis reactive in nature patient was given Brilinta and aspirin further antiplatelet management as per neurology. Lipid panel will be obtained PT and OT consultation speech therapy consultation., Pending MRI Leukocytosis without any clinical or biochemical radiological evidence of infection. Monitor white blood cell count - Hypertension: Permissive hypertension patient although was resumed on home medications. - COPD without any acute exacerbation - Hyperlipidemia - Confusion probably secondary to CVA: Seroquel as needed at nighttime if she gets agitated - Depression Objective - Vital Signs Vital signs: Vital Signs Temp 97.8 F 01/31/25 10:48 Pulse 66 01/31/25 10:48 Resp 18 01/31/25 10:48 BP 154/76 01/31/25 10:48 Pulse Ox 94 L 01/31/25 10:48 FiO2 Intake & Output 01/30/25 01/31/25 01/31/25 18:59 06:59 18:59 Output Total 1100 900 Balance -1100 -900 Weight 72.575 kg 49.5 kg Output: Urine 1100 900 Other: Voiding Method External Catheter External Catheter - Labs CBC & Chem 7: 01/31/25 06:33 01/31/25 06:33 Labs: Abnormal Lab Results - Last 24 Hours (Table) 01/31/25 01/31/25 Range/Units 06:33 06:33 WBC 16.81 H (4.50-10.00) 10*3/uL RBC 5.47 H (4.10-5.20) 10*6/uL Hgb 15.9 H (12.0-15.0) g/dL Hct 47.0 H (37.2-46.3) % Sodium 135 L (137-145) mmol/L Chloride 97 L (98-107) mmol/L BUN 22 H (7-17) mg/dL Glucose 129 H (74-99) mg/dL
[2025-01-31 13:55] VITALS: BMI 18.7
--- NOTE | 2025-01-31 15:49 | P.PN ---
Subjective Progress Note Date: 01/31/25 Patient initially seen by Dr. Call. Please refer to her note for details. Patient is a 84-year-old female with sudden onset of right facial droop, expressive aphasia and slurred speech. Patient also has right visual field deficit and global aphasia. Patient undergoing stroke workup. Most of the symptoms have resolved. Patient is laying comfortably in the bed. Patient states that at baseline, she only uses walker when she goes to groceries. Inside home she just touches to the chairs and furniture. Objective - Vital Signs Vital signs: Vital Signs Temp 97.8 F 01/31/25 10:48 Pulse 66 01/31/25 14:01 Resp 18 01/31/25 14:01 BP 154/76 01/31/25 10:48 Pulse Ox 94 L 01/31/25 10:48 FiO2 Intake & Output 01/30/25 01/31/25 01/31/25 18:59 06:59 18:59 Intake Total 150 Output Total 1100 900 Balance -1100 -900 150 Weight 72.575 kg 49.5 kg 49.5 kg Intake: Oral 150 Output: Urine 1100 900 Other: Voiding Method External Catheter External Catheter # Voids 0 # Bowel Movements 0 - Exam Patient's mental status, speech and language functions are normal. Patient knows it is January or February and the year is and that she is in [employer] in [facility]. On cranial examination pupils are equal, round and reactive to light, visual marrufo are full, extraocular muscles intact, face is symmetric and tongue protrudes midline. Her hearing is decreased. Slightly slow mentation. On muscle strength testing there is mild left arm pronation with mild upward drift and the strength is normal in arms distally and proximally. In the lower limbs, hip flexion is between 4 to 4-bilaterally, ankle dorsiflexion and toe extension are normal. Patient has high arched feet and hammertoes. Sensory to touch is equal with no neglect. No ataxia for chnirb-[id number] testing. - Labs CBC & Chem 7: 02/01/25 06:23 02/01/25 06:23 Labs: Abnormal Lab Results - Last 24 Hours (Table) 01/31/25 01/31/25 Range/Units 06:33 06:33 WBC 16.81 H (4.50-10.00) 10*3/uL RBC 5.47 H (4.10-5.20) 10*6/uL Hgb 15.9 H (12.0-15.0) g/dL Hct 47.0 H (37.2-46.3) % Sodium 135 L (137-145) mmol/L Chloride 97 L (98-107) mmol/L BUN 22 H (7-17) mg/dL Glucose 129 H (74-99) mg/dL Assessment and Plan Assessment: 1. The patient is an 84-year-old female who has signs and symptoms on examination consistent with a left middle cerebral artery territory infarction, with global aphasia, occurring while taking aspirin and Plavix history of hypertension 2. Edema and pain of the bilateral lower extremities-possible DVT 3. History of hyperlipidemia 4. History of seizure Plan: 1. CTA of head and neck reveal no flow limiting stenosis bilateral carotid bifurcation. Normal [facility] [place]. 2. MRI of the brain still pending. 3. Venous Doppler of the bilateral lower extremities negative for DVT 4. Patient at home on aspirin 81 mg and Plavix [address] Call recommended to consider changing Plavix to Brilinta 5. Lipid panel with cholesterol 143, LDL 67, HDL 59, triglycerides 77. Continue Lipitor 40 mg daily (home dose). Blood pressure well controlled. 6. Speech therapy consultation 7. PT and OT consultations 8. DVT prophylaxis: Patient on Lovenox 30 minutes of beer daily. 9. Check 2-D echo to rule out embolic source. 10. Hemoglobin A1c
[2025-02-01 07:09] LABS: HCT 43.8 % (37.2-46.3); HGB 14.4 g/dL (12.0-15.0); MCHC 32.9 g/dL (32.0-37.0); MCV 88.3 fL (80.0-97.0); Platelet Count 257 10*3/uL (140-440); RBC 4.96 10*6/uL (4.10-5.20); RDW 14.8 % (11.5-14.5); WBC 9.54 10*3/uL (4.50-10.00)
[2025-02-01 07:33] LABS: African American GFR (CKD) 87 (>60 ml/min/1.73 sqM); Anion Gap 9 mmol/L; Blood Urea Nitrogen 31 mg/dL (7-17); Calcium 8.9 mg/dL (8.4-10.2); Carbon Dioxide 27 mmol/L (22-30); Chloride 100 mmol/L (98-107); Glucose 104 mg/dL (74-99); Non-African American GFR(CKD) 75 (>60 ml/min/1.73 sqM); Potassium 3.4 mmol/L (3.5-5.1); Sodium 136 mmol/L (137-145)
--- NOTE | 2025-02-01 14:15 | P.PN ---
Subjective Progress Note Date: 02/01/25 -year-old M with irregular complains of confusion and unable to speak patient appears to have more aphasia and also right-sided facial droop patient does not appear to have any other focal weakness but patient is not following commands to do basic neuroexam. Patient had any history of atrial fibrillation patient had a history of intracranial hemorrhage in the past unknown whether it is spontaneous or traumatic bleed and patient also has TIAs in the past patient is on aspirin Plavix at home. CT of the head showed some chronic periventricular white matter changes 01/31/2025 Patient will undergo MRI today patient was eval by neurology they believe patient has stroke in the MCA territory. Physical therapy Occupational Therapy recommendations are still pending. Patient has leukocytosis but no clinical evidence of infection at this time chest x-ray and urinalysis were essentially within normal notes yesterday patient denied any UTI symptoms patient denied any cough at this time no abdominal pain or diarrhea will monitor without any antibiotics. 02/01/2025 Patient evaluated in follow-up today up in the chair. She is eating without difficulty. Aphasia seems to have improved at this time as well as her right sided facial droop. She is currently pending brain MRI. Patient had an echoca rdiogram completed today and reports are currently pending. Has not 3.4 today sodium 136 BUN of 31 creatinine 0.73. Her lipid panel was within normal limits and her CBC is unremarkable. Review of Systems Constitutional: Denied any fatigue denied any fever. Cardio vascular: denied any chest pain, palpitations Gastrointestinal: denied any nausea, vomiting, diarrhea Pulmonary: Denied any shortness of breath cough Neurologic denied any new focal deficits All inpatient medications were reviewed and appropriate changes in these medications as dictated in the interval history and assessment and plan. PHYSICAL EXAMINATION: GENERAL: The patient is alert and oriented x3, not in any acute distress. Well developed, well nourished. HEENT: Pupils are round and equally reacting to light. EOMI. No scleral icterus. No conjunctival pallor. Normocephalic, atraumatic. No pharyngeal erythema. No thyromegaly. CARDIOVASCULAR: S1 and S2 present. No murmurs, rubs, or gallops. PULMONARY: Chest is clear to auscultation, no wheezing or crackles. ABDOMEN: Soft, nontender, nondistended, normoactive bowel sounds. No palpable organomegaly. MUSCULOSKELETAL: No joint swelling or deformity. EXTREMITIES: No cyanosis, clubbing, or pedal edema. NEUROLOGICAL: Moderate aphasia confusion Limited exam as patient does not follow commands well. SKIN: No rashes. Assessment and plan -Cerebrovascular accident probably thromboembolic in nature, pending brain MRI, echocardiogram was completed, lipid panel completed patient continues on aspirin and statin therapy. Leukocytosis without any clinical or biochemical radiological evidence of infection. Blood work has normalized. - Hypertension: Permissive hypertension patient although was resumed on home medications. - COPD without any acute exacerbation - Hyperlipidemia - Confusion probably secondary to CVA: Seroquel as needed at nighttime if she gets agitated - Depression The impression and plan of care has been dictated by Nurse Sierra Pra ctitioner as directed. Dr. Rita MD I have performed a history and physical examination and medical decision making of this patient, discussed the same with the dictator, and agree with the dictat ors assessment and plan as written, documented as a scribe. Based on total visit time, I have performed more than 50% of this visit. Objective - Vital Signs Vital signs: Vital Signs Temp 97.8 F 02/01/25 11:10 Pulse 77 02/01/25 13:24 Resp 15 02/01/25 13:24 BP 145/82 02/01/25 11:10 Pulse Ox 96 02/01/25 11:10 FiO2 Intake & Output 01/31/25 02/01/25 02/01/25 18:59 06:59 18:59 Intake Total 390 237 Output Total 250 400 Balance 140 -400 237 Weight 49.5 kg 57 kg Intake: Oral 390 237 Output: Urine 250 400 Other: Voiding Method External Catheter External Catheter External Catheter # Voids 0 # Bowel Movements 0 - Labs CBC & Chem 7: 02/01/25 06:23 02/01/25 06:23 Labs: Abnormal Lab Results - Last 24 Hours (Table) 02/01/25 Range/Units 06:23 Sodium 136 L (137-145) mmol/L Potassium 3.4 L (3.5-5.1) mmol/L BUN 31 H (7-17) mg/dL Glucose 104 H (74-99) mg/dL Assessment and Plan Time with Patient: Less than 30
[2025-02-01] MEDS: POTASSIUM CHLORIDE ER 20 MEQ TAB.ER PO STA (14:58)
[2025-02-01] MEDS: LORazepam 1 MG/0.5 ML VIAL IV STA (14:58)
--- NOTE | 2025-02-01 15:57 | MR ---
INDICATION: Patient age:Female; 84 years old; Reason for study: CVA; PHH. COMPARISON: CT brain 01/30/2025, 01/03/2023, CTA head and neck 01/30/2025, 01/03/2023, MRI brain 3. TECHNIQUE: Multi planar, multi sequence imaging was performed through the brain without the administr ation of intravenous contrast. FINDINGS: The valle-white junctions, ventricular system, basal cisterns appear unremarkable. Age-appropriate cer ebral volume loss. Diffusion-weighted imaging shows no evidence of restricted diffusion to suggest ac craig/subacute infarct. Intracranial arterial flow voids are maintained. Midline structures show no abn ormality. Confluent areas of high T2/FLAIR signal intensity are seen within the periventricular and s ubcortical white matter. Additional regions within the central adeline. The susceptibility weighted imag es do not reveal any evidence for micro-hemorrhage. Incidental posterior right frontal lobe developme ntal venous anomaly. The bone marrow signal is within normal limits. The paranasal sinuses are unremarkable. Bilateral ap hakia. IMPRESSION: 1. No evidence of intracranial mass or acute/subacute infarct. 2. Advanced similar nonspecific white matter changes, likely related to small vessel ischemic disease . [facility], , 02/01/2025 3:55 PM
[2025-02-01] MEDS: CLOPIDOGREL 75 MG TAB PO SCH (18:30)
[2025-02-02 07:21] LABS: African American GFR (CKD) >90 (>60 ml/min/1.73 sqM); Anion Gap 6 mmol/L; Blood Urea Nitrogen 29 mg/dL (7-17); Calcium 9.2 mg/dL (8.4-10.2); Carbon Dioxide 28 mmol/L (22-30); Chloride 104 mmol/L (98-107); Glucose 105 mg/dL (74-99); Non-African American GFR(CKD) 81 (>60 ml/min/1.73 sqM); Potassium 4.3 mmol/L (3.5-5.1); Sodium 138 mmol/L (137-145)
--- NOTE | 2025-02-02 08:35 | P.PN ---
Subjective Progress Note Date: 02/01/25 02/01/2025: Patient was seen for a follow-up. Patient is laying comfortably in the bed. Offers no new complaints. Patient had brain MRI. 01/31/2025: Patient initially seen by Dr. Call. Please refer to her note for details. Patient is a 84-year-old female with sudden onset of right facial droop, expressive aphasia and slurred speech. Patient also has right visual field deficit and global aphasia. Patient undergoing stroke workup. Most of the symptoms have resolved. Patient is laying comfortably in the bed. Patient states that at baseline, she only uses walker when she goes to groceries. Inside home she just touches to the chairs and furniture. Objective - Vital Signs Vital signs: Vital Signs Temp 98.1 F 02/01/25 14:57 Pulse 71 02/01/25 14:57 Resp 15 02/01/25 14:57 BP 145/77 02/01/25 14:57 Pulse Ox 94 L 02/01/25 14:57 FiO2 Intake & Output 01/31/25 02/01/25 02/01/25 18:59 06:59 18:59 Intake Total 390 474 Output Total 250 400 550 Balance 140 -400 -76 Weight 49.5 kg 57 kg Intake: Oral 390 474 Output: Urine 250 400 550 Other: Voiding Method External Catheter External Catheter External Catheter # Voids 0 # Bowel Movements 0 - Exam Patient's mental status, speech and language functions are normal. Patient knows it is January or February and the year is and that she is in [facility] in [facility]. On cranial examination pupils are equal, round and reactive to light, visual marrufo are full, extraocular muscles intact, face is symmetric and tongue protrudes midline. Her hearing is decreased. Slightly slow mentation. On muscle strength testing there is mild left arm pronation with mild upward drift and the strength is normal in arms distally and proximally. In the lower limbs, hip flexion is between 4 to 4-bilaterally, ankle dorsiflexion and toe extension are normal. Patient has high arched feet and hammertoes. Sensory to touch is equal with no neglect. No ataxia for [id number] testing. - Labs CBC & Chem 7: 02/01/25 06:23 02/02/25 05:59 Labs: Abnormal Lab Results - Last 24 Hours (Table) 02/01/25 Range/Units 06:23 Sodium 136 L (137-145) mmol/L Potassium 3.4 L (3.5-5.1) mmol/L BUN 31 H (7-17) mg/dL Glucose 104 H (74-99) mg/dL Assessment and Plan Assessment: 1. The patient is an 84-year-old female who has signs and symptoms on examination consistent with a left middle cerebral artery territory infarction, with global aphasia, occurring while taking aspirin and Plavix history of hypertension 2. Edema and pain of the bilateral lower extremities-possible DVT 3. History of hyperlipidemia 4. History of seizure Plan: 1. Patient's symptoms have resolved. MRI of the brain revealed no acute ischemic stroke. Uncertain if it was TIA or a seizure. 2. MRI of the brain revealed no evidence of intracranial mass or acute/subacute infarct. Advanced similar nonspecific white matter changes, likely related to small vessel ischemic change. I personally reviewed MRI, I agree with the findings. No acute ischemic stroke. 3. Venous Doppler of the bilateral lower extremities negative for DVT 4. Patient at home on aspirin 81 mg and Plavix 75 mg daily. Continue these 2 medications. 5. Lipid panel with cholesterol 143, LDL 67, HDL 59, triglycerides 77. Continue Lipitor 40 mg daily (home dose). Blood pressure well controlled. 6. CTA of head and neck reveal no flow limiting stenosis bilateral carotid bifurcation. Normal [place]. 7. PT and OT consultations 8. DVT prophylaxis: Patient on Lovenox 30 minutes of beer daily. 9. Await 2-D echo report. Results still pending. 10. Hemoglobin A1c 5.9 on 01/06/2023. 11. Patient has history of seizure. Uncertain if this current event was possible seizure. We will check EEG. Patient on Keppra 500 mg every 12 hours. 12. Discussed with patient's and major case detective.
--- NOTE | 2025-02-02 10:09 | CA ---
Transthoracic Echo Report Name: Elvira Card Age: 84 Gender: F : 1940 Exam Date: 02/01/2025 11:10 Exam Location: [facility] Ht (in): 64 Wt (lb): 125 Ordering Physician: Olivier Sanders MD Attending/Referring Phys: Rouge Presser Diann Chisholm RDCS Procedure CPT: Indications: stroke/tia, CVA Cardiac Hx: COPD, CVA/TIA, Asthma, HTN Technical Quality: Good Contrast 1: Agitated Saline Total Dose (mL): 8 Contrast 2: Total Dose (mL): MEASUREMENTS (Male / Female) Normal Values 2D ECHO LV Diastolic Diameter PLAX 3.2 cm 4.2 - 5.9 / 3.9 - 5.3 cm LV Systolic Diameter PLAX 2.2 cm IVS Diastolic Thickness 0.7 cm 0.6 - 1.0 / 0.6 - 0.9 cm LVPW Diastolic Thickness 0.7 cm 0.6 - 1.0 / 0.6 - 0.9 cm LV Relative Wall Thickness 0.5 RV Internal Dim ED PLAX 2.1 cm LVOT Diameter 1.3 cm LA Systolic Diameter LX 2.7 cm 3.0 - 4.0 / 2.7 - 3.8 cm LV Diastolic Volume MOD BP 46.2 cm??? 67 - 155 / 56 - 104 cm??? LV Systolic Volume MOD BP 16.9 cm??? 22 - 58 / 19 - 49 cm??? LV Ejection Fraction MOD BP 63.4 % >= 55 % LV Diastolic Volume MOD 4C 45.9 cm??? LV Systolic Volume MOD 4C 15.5 cm??? LV Ejection Fraction MOD 4C 66.3 % LV Diastolic Length 4C 7.0 cm LV Systolic Length 4C 5.5 cm LV Diastolic Volume MOD 2C 43.7 cm??? LV Systolic Volume MOD 2C 18.8 cm??? LV Ejection Fraction MOD 2C 57.1 % LV Diastolic Length 2C 6.6 cm LV Systolic Length 2C 5.5 cm LA Volume 31.9 cm??? 18 - 58 / 22 - 52 cm??? LA Volume Index 19.9 cm???/m??? 16 - 28 cm???/m??? DOPPLER MV Area PHT 2.0 cm??? Mitral E Point Velocity 55.0 cm/s Mitral A Point Velocity 98.0 cm/s Mitral E to A Ratio 0.6 MV Deceleration Time 373.3 ms TR Peak Velocity 271.9 cm/s TR Peak Gradient 29.6 mmHg Right Atrial Pressure 5.0 mmHg Pulmonary Artery Systolic Pressu 34.6 mmHg Right Ventricular Systolic Press 34.6 mmHg FINDINGS Left Ventricle Left ventricular ejection fraction is estimated at 55-60 %. Normal left ventricular systolic function with no obvious regional wall motion abnormalities. Right Ventricle Normal right ventricular size and function. . Right ventricular systolic pressure within normal limits. Right Atrium Normal right atrial size. Negative agitated saline bubble study for right to left shunt. Left Atrium Normal left atrial size. Mitral Valve Structurally normal mitral valve. No mitral stenosis. Trace mitral regurgitation. Aortic Valve Aortic valve not well visualized. Thickened aortic valve without stenosis. No aortic stenosis. No aortic regurgitation. Tricuspid Valve Structurally normal tricuspid valve. No tricuspid stenosis. Mild tricuspid regurgitation. Pulmonic Valve Pulmonic valve not well visualized. No pulmonic stenosis. Trace pulmonic regurgitation. Pericardium No pericardial effusion. Aorta Normal size aortic root and proximal ascending aorta. CONCLUSIONS Left ventricular ejection fraction is estimated at 55-60 %. No obvious regional wall motion abnormality Grade 1 diastolic dysfunction Normal RV size and systolic function No evidence of intracardiac [id number] shunting on the bubble study No significant valve dysfunction Previewed by: Dr Carlos Manuel Lisa (Electronically Signed) Final Date: 02 February 2025 10:08
--- NOTE | 2025-02-02 14:03 | EEG ---
ELECTROENCEPHALOGRAM REPORT PREAMBLE: This is an 84-year-old female, who came to the hospital with altered mental status, aphasia, and weakness. Stroke workup was negative. CURRENT MEDICATIONS: Keppra. EEG FINDINGS: This is a 21-channel digital EEG recorded with video component, utilizing 10/20 international system with referential and bipolar montages. Background consists of well developed, well regulated, moderate voltage activity in 9 hertz alpha. Background is posterior dominant and is reactive to eye opening and closing. Intermittent moderate amplitude dysrhythmic 2 hertz delta slowing was seen in bitemporal region. Photic driving response was seen with some flash frequencies. Drowsiness was seen with appearance of bilaterally symmetric theta frequency rhythm. Deeper stages of sleep were not clearly seen. No definitive focal or generalized epileptiform activity was seen. IMPRESSION: This is an abnormal EEG due to intermittent bitemporal slowing. This is suggestive of focal cortical neuronal dysfunction involving the above described region. No definitive focal or generalized epileptiform activity was seen. If your suspicion for seizures is high, suggest prolonged, sleep-deprived EEG. MMODL / IJN: [id number] / JOSELYN
--- NOTE | 2025-02-02 14:36 | P.PN ---
Subjective Progress Note Date: 02/02/25 -year-old M with irregular complains of confusion and unable to speak patient appears to have more aphasia and also right-sided facial droop patient does not appear to have any other focal weakness but patient is not following commands to do basic neuroexam. Patient had any history of atrial fibrillation patient had a history of intracranial hemorrhage in the past unknown whether it is spontaneous or traumatic bleed and patient also has TIAs in the past patient is on aspirin Plavix at home. CT of the head showed some chronic periventricular white matter changes 01/31/2025 Patient will undergo MRI today patient was eval by neurology they believe patient has stroke in the MCA territory. Physical therapy Occupational Therapy recommendations are still pending. Patient has leukocytosis but no clinical evidence of infection at this time chest x-ray and urinalysis were essentially within normal notes yesterday patient denied any UTI symptoms patient denied any cough at this time no abdominal pain or diarrhea will monitor without any antibiotics. 02/01/2025 Patient evaluated in follow-up today up in the chair. She is eating without difficulty. Aphasia seems to have improved at this time as well as her right sided facial droop. She is currently pending brain MRI. Patient had an echoca rdiogram completed today and reports are currently pending. Has not 3.4 today sodium 136 BUN of 31 creatinine 0.73. Her lipid panel was within normal limits and her CBC is unremarkable. 02/02/2025 Patient is evaluated today in follow up on the medical floor. Patient is resting comfortably with no acute complaints. Facial droop and aphasia have improved. Brain MRI negative for acute/subacute stroke. Echocardiogram reveals an EF 55- 60%, grade 1 diastolic dysfunction, normal RV size and systolic function, no evidence of intracardiac right to left shunting on the bubble study. No signifcant valve dysfunction. EEG reveals intermittent bitemporal slowing. This is a focal cortical neuronal dysfunction involving the described region. No definitive focal or generalized weakness activity was seen. Patient remains on aspirin, plavix and statin therapy. Review of Systems Constitutional: Denied any fatigue denied any fever. Cardio vascular: denied any chest pain, palpitations Gastrointestinal: denied any nausea, vomiting, diarrhea Pulmonary: Denied any shortness of breath cough Neurologic denied any new focal deficits All inpatient medications were reviewed and appropriate changes in these medications as dictated in the interval history and assessment and plan. PHYSICAL EXAMINATION: GENERAL: The patient is alert and oriented x3, not in any acute distress. Well developed, well nourished. HEENT: Pupils are round and equally reacting to light. EOMI. No scleral icterus. No conjunctival pallor. Normocephalic, atraumatic. No pharyngeal erythema. No thyromegaly. CARDIOVASCULAR: S1 and S2 present. No murmurs, rubs, or gallops. PULMONARY: Chest is clear to auscultation, no wheezing or crackles. ABDOMEN: Soft, nontender, nondistended, normoactive bowel sounds. No palpable organomegaly. MUSCULOSKELETAL: No joint swelling or deformity. EXTREMITIES: No cyanosis, clubbing, or pedal edema. NEUROLOGICAL: Moderate aphasia confusion Limited exam as patient does not follow commands well. SKIN: No rashes. Assessment and plan -Cerebrovascular accident probably thromboembolic in nature, MRI reveals no acute stroke, echocardiogram was completed, lipid panel completed patient cont inues on aspirin and statin therapy. Leukocytosis without any clinical or biochemical radiological evidence of infection. Blood work has normalized. - Hypertension: Permissive hypertension patient although was resumed on home medications. - COPD without any acute exacerbation - Hyperlipidemia - Confusion probably secondary to CVA: Seroquel as needed at nighttime if she gets agitated - Depression Discharge to [facility] in the next 24 hours. The impression and plan of care has been dictated by Erika Manriquez, Nurse Practitioner as directed. Dr. Rita MD I have performed a history and physical examination and medical decision making of this patient, discussed the same with the dictator, and agree with the dictators assessment and plan as written, documented as a scribe. Based on total visit time, I have performed more than 50% of this visit. Objective - Vital Signs Vital signs: Vital Signs Temp 97.8 F 02/02/25 08:17 Pulse 60 02/02/25 11:54 Resp 16 02/02/25 11:54 BP 138/75 02/02/25 11:54 Pulse Ox 97 02/02/25 11:54 FiO2 Intake & Output 02/01/25 02/02/25 02/02/25 18:59 06:59 18:59 Intake Total 721 10 Output Total 550 350 200 Balance 171 -350 -190 Weight 50.7 kg Intake: IV 10 10 Invasive Line 2 10 10 Oral 711 Output: Urine 550 350 200 Other: Voiding Method External Catheter External Catheter External Catheter - Labs CBC & Chem 7: 02/01/25 06:23 02/02/25 05:59 Labs: Abnormal Lab Results - Last 24 Hours (Table) 02/02/25 Range/Units 05:59 BUN 29 H (7-17) mg/dL Glucose 105 H (74-99) mg/dL Assessment and Plan Time with Patient: Less than 30
--- NOTE | 2025-02-03 07:41 | P.PN ---
Subjective Progress Note Date: 02/02/25 02/02/2025: Patient was seen for follow-up. Patient is laying comfortably in the bed. Patient denies any history of seizures that she remember. Patient does not know why she is taking Keppra. Patient states that her primary physician Dr. Kelly place her on Keppra. Patient denies any focal symptoms. 02/01/2025: Patient was seen for a follow-up. Patient is laying comfortably in the bed. Offers no new complaints. Patient had brain MRI. 01/31/2025: Patient initially seen by Dr. Call. Please refer to her note for details. Patient is a 84-year-old female with sudden onset of right facial droop, expressive aphasia and slurred speech. Patient also has right visual field deficit and global aphasia. Patient undergoing stroke workup. Most of the symptoms have resolved. Patient is laying comfortably in the bed. Patient states that at baseline, she only uses walker when she goes to groceries. Inside home she just touches to the chairs and furniture. Objective - Vital Signs Vital signs: Vital Signs Temp 97.8 F 02/02/25 08:17 Pulse 60 02/02/25 11:54 Resp 16 02/02/25 11:54 BP 138/75 02/02/25 11:54 Pulse Ox 97 02/02/25 11:54 FiO2 Intake & Output 02/01/25 02/02/25 02/02/25 18:59 06:59 18:59 Intake Total 721 20 Output Total 550 350 200 Balance 171 -350 -180 Weight 50.7 kg Intake: IV 10 20 Invasive Line 2 10 20 Oral 711 Output: Urine 550 350 200 Other: Voiding Method External Catheter External Catheter External Catheter - Exam Patient's mental status, speech and language functions are normal. Patient knows it is January and the year is and that she is in [facility] in [facility]. On cranial examination pupils are equal, round and reactive to light, visual marrufo are full, extraocular muscles intact, face is symmetric and tongue protrudes midline. Her hearing is decreased. Slightly slow mentation. On muscle strength testing there is mild left arm pronation with mild upward drift and the strength is normal in arms distally and proximally. In the lower limbs, hip flexion is between 4 to 4-bilaterally, ankle dorsiflexion and toe extension are normal. Patient has high arched feet and hammertoes. Sensory to touch is equal with no neglect. No ataxia for [id number]-[id number] testing. - Labs CBC & Chem 7: 02/01/25 06:23 02/02/25 05:59 Labs: Abnormal Lab Results - Last 24 Hours (Table) 02/02/25 Range/Units 05:59 BUN 29 H (7-17) mg/dL Glucose 105 H (74-99) mg/dL Assessment and Plan Assessment: 1. The patient is an 84-year-old female who has signs and symptoms on exa mination consistent with a left middle cerebral artery territory infarction, with global aphasia, occurring while taking aspirin and Plavix 2. History of hypertension 3. History of hyperlipidemia 4. History of right-sided subdural hematoma 08/07/2023. Plan: 1. Patient's symptoms have resolved. MRI of the brain revealed no acute ischemic stroke. Uncertain if it was TIA or a seizure. 2. MRI of the brain revealed no evidence of intracranial mass or acute/subacute infarct. Advanced similar nonspecific white matter changes, likely related to small vessel ischemic change. I personally reviewed MRI, I agree with the findings. No acute ischemic stroke. 3. Venous Doppler of the bilateral lower extremities negative for DVT 4. Patient at home on aspirin 81 mg and Plavix 75 mg daily. Continue these 2 medications. 5. Lipid panel with cholesterol 143, LDL 67, HDL 59, triglycerides 77. Continue Lipitor 40 mg daily (home dose). Blood pressure well controlled. 6. CTA of head and neck reveal no flow limiting stenosis bilateral carotid bifurcation. Normal [place]. 7. PT and OT consultations 8. DVT prophylaxis: Patient on Lovenox 30 minutes of beer daily. 9. 2-D echo revealed normal LV EF 55-60%. No obvious regional wall motion abnormalities. Negative agitated saline bubble study for mtnqs-[id number]-hykx shunt. No significant valvular dysfunction. 10. Hemoglobin A1c 5.9 on 01/06/2023. 11. Patient never had any history of seizures. Patient had history of fall with right-sided subdural hematoma along the right tentorium on 07/28/2023. Patient was treated at [facility] at that time. Patient has been on Keppra prophylactically since then. 12. EEG was performed, which was abnormal due to intermittent bitemporal slowing. This is suggestive of focal cortical neuronal dysfunction involving the above described region. No definite focal or generalized epileptiform activity was seen. If your suspicion for seizures is high, suggest prolonged, sleep deprived EEG. 13. Suspect patient may have had a seizure rather than TIA. All stroke workup has been negative. We will increase dose of Keppra from 500-750 mg twice a day. 14. Neurologically clear for discharge to [facility] in the morning.
[2025-02-03 08:35] VITALS: BP 132/75; PULSE 80; RESP 16; TEMP 97.5
--- NOTE | 2025-02-03 09:27 | P.DS ---
Providers Date of admission: 01/30/25 09:32 Attending physician: Asia Escobar Consults: 01/30/25 09:31 Consult Physician Routine Consulting Provider: Olivier Sanders Consult Reason/Comments: CVA Do you want consulting provider notified?: Yes Primary care physician: Stated None Hospital Course: Final Diagnosis - Confusion, aphasia and possible right facial droop probably secondary to seizure rather than TIA -Cerebrovascular accident probably thromboembolic in nature, MRI reveals no acute stroke, echocardiogram was completed, lipid panel completed patient continues on aspirin and statin therapy. - Leukocytosis without any clinical or biochemical radiological evidence of infection. Blood work has normalized. - Hypertension: Permissive hypertension patient although was resumed on home medications. - COPD without any acute exacerbation - Hyperlipidemia - Hypertension: Permissive hypertension patient although was resumed on home medications. - COPD without any acute exacerbation - Hyperlipidemia - Confusion probably secondary to CVA: Seroquel as needed at nighttime if she gets agitated - Depression - Depression -Hx of right sided subdural hematoma in jul post fall; has been on keppra prophylactically following the incident. - Discharge Disposition Patient is stable for discharge to subacute rehab at [facility]. Continue aspirin statin and plavix. Needs to follow up with a neurologist on discharge. Patients keppra dosing has been increased to 750 mg twice daily as felt the episode prompting admission was likely due to a seizure vs. TIA. Hospital Course This is a an 84-year-old female with complaints of confusion and unable to speak patient; wit aphasia and right sided facial droop on admission. Patient had a history of intracranial hemorrhage in the past unknown whether it is spontaneous or traumatic bleed and patient also has TIAs in the past patient is on aspirin Plavix at home. No reported history of atrial fibrillation. CT of the head showed some chronic periventricular white matter changes. Patient was admitted to the hospital with neurology consultation. Patient has leukocytosis but no clinical evidence of infection at this time chest x-ray and urinalysis were essentially within normal notes yesterday patient denied any UTI symptoms patient denied any cough at this time no abdominal pain or diarrhea will monitor without any antibiotics. She is eating without difficulty. Aphasia seems to have improved at this time as well as her right sided facial droop. Brain MRI negative for acute/subacute stroke. Echocardiogram reveals an EF 55-60%, grade 1 diastolic dysfunction, normal RV size and systolic function, no evidence of intracardiac right to left shunting on the bubble study. No signifcant valve dysfunction. EEG reveals intermittent bitemporal slowing. This is a focal cortical neuronal dysfunction involving the described region. No definitive focal or generalized activity was seen. Patient remains on aspirin, plavix and statin therapy. Physical therapy have evaluated the patient and recommending subacute rehab on discharge and patient has a bed at [facility] and is cleared medically for discharge. Please see medication reconciliation for a list of current medications. Thank you for allowing us to participate in the care of this patient. The impression and plan of care has been dictated by Nurse Sierra Pr actitioner as directed. Dr. Rita MD I have performed a history and physical examination and medical decision making of this patient, discussed the same with the dictator, and agree with the dicta tors assessment and plan as written, documented as a scribe. Based on total visit time, I have performed more than 50% of this visit. Patient Condition at Discharge: Stable Plan - Discharge Summary Discharge Rx Participant: No New Discharge Prescriptions: New Metoprolol Tartrate [Lopressor] 25 mg PO BID tab Enoxaparin [Lovenox] 30 mg SQ DAILY each Continue Aspirin 81 mg PO DAILY tab Atorvastatin [Lipitor] 40 mg PO HS #30 tablet levETIRAcetam [Keppra] 500 mg PO Q12HR Calcium Citrate 1 dose PO DAILY Clopidogrel [Plavix] 75 mg PO DAILY #30 tab lisinopriL [Zestril] 20 mg PO DAILY Discontinued Metoprolol Tartrate [Lopressor] 25 mg PO BID Discharge Medication List Aspirin 81 mg PO DAILY tab 01/06/23 [Rx] Atorvastatin [Lipitor] 40 mg PO HS #30 tablet 01/06/23 [Rx] Clopidogrel [Plavix] 75 mg PO DAILY #30 tab 01/06/23 [Rx] Calcium Citrate 1 dose PO DAILY 01/30/25 [History] levETIRAcetam [Keppra] 500 mg PO Q12HR 01/30/25 [History] lisinopriL [Zestril] 20 mg PO DAILY 01/30/25 [History] Enoxaparin [Lovenox] 30 mg SQ DAILY each 02/03/25 [Rx] Metoprolol Tartrate [Lopressor] 25 mg PO BID tab 04/17/25 [Rx] Follow up Appointment(s)/Referral(s): None,Stated [Primary Care Provider] - 1-2 days Jean Claude Chaidez DO [STAFF PHYSICIAN] - 1 Week Sly Friedman DO [STAFF PHYSICIAN] - 1 Week (Neurology) Ambulatory/Diagnostic Orders: Basic Metabolic Panel [LAB.AMB] Time Frame: 3 Days, Location: None Selected Activity/Diet/Wound Care/Special Instructions: follow up with neurologist on DC Continue aspirin and plavix Discharge Disposition: TRANSFER TO SNF/ECF
== END 2025-02-03 11:25 | DRG 101 ==
LOC: EC 08:02 → 3SCARD 09:32
PROVIDERS: ADMIT Hospitalist; ATTEND Hospitalist
DX: R56.9 Unspecified convulsions (principal); I67.89 Other cerebrovascular disease; R47.01 Aphasia; I48.91 Unspecified atrial fibrillation; D72.829 Elevated white blood cell count, unspecified; J44.89 Other specified chronic obstructive pulmonary disease; I10 Essential (primary) hypertension; F32.A Depression, unspecified; E78.5 Hyperlipidemia, unspecified; R29.810 Facial weakness; R45.1 Restlessness and agitation; R47.1 Dysarthria and anarthria; H53.40 Unspecified visual field defects; F41.9 Anxiety disorder, unspecified; Z79.82 Long term (current) use of aspirin; Z79.02 Long term (current) use of antithrombotics/antiplatelets; Z79.899 Other long term (current) drug therapy; Z86.73 Personal history of transient ischemic attack (TIA), and cerebral infarction without residual deficits; Z88.8 Allergy status to other drugs, medicaments and biological substances
CPT/HCPCS: 36415; 51702; 70450; 70496; 70498; 70551; 71045; 80048; 80053; 80061; 81003; 82550; 83735; 85025; 85027; 85610; 85730; 93005; 93306; 93970; 94760; 95816; 99291